=== PATIENT | female | born 1940 | race Caucasian/White ===

== ENCOUNTER → 2016-10-11 | Outpatient (CLI) | payer MEDICARE ==
[2016-10-11 14:31] LABS: Non-African American GFR(MDRD) >60 (>60 ml/min/1.73 sqM)
== END | disposition home or self-care (01) ==
LOC: LABWHC1 13:43
PROVIDERS: ATTEND Family Medicine
DX: R59.0 Localized enlarged lymph nodes (principal)
CPT/HCPCS: 36415; 82565

== ENCOUNTER → 2016-11-14 | Outpatient (CLI) | payer MEDICARE ==
--- NOTE | 2016-11-15 09:06 | MM ---
Reason for exam: screening (asymptomatic). Last mammogram was performed 1 year ago. History: Patient is postmenopausal. Excisional biopsy of the right breast. Took hormonal contraceptives for 8 years beginning at age 24. Took estrogen for 10 years. Physical Findings: A clinical breast exam by your physician is recommended on an annual basis and results should be correlated with mammographic findings. MG 3D Screening Mammo W/Cad Bilateral CC and MLO view(s) were taken. Prior study comparison: November 14, 2015, bilateral MG screening mammo w CAD. October 21, 2014, bilateral MG screening mammo w CAD. The breast tissue is heterogeneously dense. This may lower the sensitivity of mammography. There is no discrete abnormality. No significant changes when compared with prior studies. ASSESSMENT: Negative, BI-RAD 1 RECOMMENDATION: Routine screening mammogram of both breasts in 1 year.
== END | disposition home or self-care (01) ==
LOC: RADMAMWWP 09:03
PROVIDERS: ATTEND Obstetrics & Gynecology
DX: Z12.31 Encounter for screening mammogram for malignant neoplasm of breast (principal)
CPT/HCPCS: 77063; G0202

== ENCOUNTER → 2017-01-24 | Outpatient (CLI) | payer MEDICARE ==
--- NOTE | 2017-01-24 16:34 | BD ---
EXAMINATION TYPE: MG DEXA axial skeleton. DATE OF EXAM: 01/24/2017 COMPARISON: NONE CLINICAL HISTORY: 76 year-old female known osteopenia Height: 5 FT 7 1/2 IN Weight: 194 FRAX RISK QUESTIONS: Alcohol (3 or more units per day): NO Family History (Parent hip fracture): NO Glucocorticoids (More than 3mos): NO (Ex: prednisone, prednisolone, methylprednisolone, dexamethasone, and hydrocortisone). History of Fracture in Adulthood: YES Secondary Osteoporosis: 1. Type 1 Diabetes: NO 2. Hyperthyroidism: NO 3. Menopause before 45: YES 4. Malnutrition: NO 5. Chronic liver disease: NO Rheumatoid Arthritis: NO Current Tobacco Use: NO RISK FACTORS HISTORY OF: History of Wrist Fracture: YES When: AGE 74 Surgery to Spine/Hip(right/left)/Wrist (right/left): LT WRIST When: 2 YRS AGO Active: YES Postmenopausal woman: AGE 47 MEDICATIONS: Additional Medications: PROPRANOLOL, PRADAXA, MIRTAZAPINE, CLONAZAPAM, D3, DICYCLOMINE,FLECINIDE Additional History: EXAM MEASUREMENTS: Bone mineral densitometry was performed using the DragonRAD System. Bone mineral density as measured about the Lumbar spine is: ----- L1-L4(G/cm2): 1.003 T Score Values are as follows: ----- L2: -2.5 ----- L3: -1.1 ----- L4: -0.5 ----- L1-L4: -1.5 Bone mineral density has: Increased 1.9% since study of: 2013 Bone mineral density about the R hip (g/cm2): 0.777 Bone mineral density about the L hip (g/cm2): 0.815 T Score values are as follows: -----R Neck: -1.9 -----L Neck: -1.6 -----R Total: -2.0 -----L Total: -1.8 Bone mineral density has: Decreased -3.4% since study of: 2013 IMPRESSION: Osteopenia (T Score between -2.5 and -1 as noted by T score values There is slightly increased risk of fracture and the patient may be considered for treatment. Re-Scre en 2-5 years. NOTE: T-SCORE=SD OF THE YOUNG ADULT MEAN.
== END | disposition home or self-care (01) ==
LOC: RADBDWWP 14:00
PROVIDERS: ATTEND Obstetrics & Gynecology
DX: M85.88 Other specified disorders of bone density and structure, other site (principal)
CPT/HCPCS: 77080

== ENCOUNTER 2017-09-07 07:38 | Emergency (ER) | payer MEDICARE ==
[2017-09-07 07:50] VITALS: BP 138/74; PULSE 69; RESP 16; TEMP 97.8
--- NOTE | 2017-09-07 08:11 | XR ---
EXAMINATION TYPE: XR foot complete LT , 3 VIEWS DATE OF EXAM ORDERED: 09/07/2017 HISTORY: Pain. COMPARISON: None. FINDINGS: No fracture, dislocation or other acute osseous lesion is seen. There is a plantar calcane al spur present. IMPRESSION: 1. NO ACUTE OSSEOUS LESION. 2. PLANTAR CALCANEAL SPUR.
[2017-09-07] MEDS ORDERED: traMADol 50 MG STARTER PACK 3 TAB BTL PO STA (08:18)
--- NOTE | 2017-09-07 08:19 | ED ---
Fall HPI - General Source: patient, RN notes reviewed Mode of arrival: wheelchair Limitations: no limitations <Balaji Cespedes - Last Filed: 09/07/17 08:20> <Jeffrey Golden - Last Filed: 09/07/17 08:28> - General Chief Complaint: Fall Stated Complaint: Fall, toe injury Time Seen by Provider: 09/07/17 08:04 - History of Present Illness Initial Comments: This is a 77-year-old female presents emergency Department chief complaint of left foot injury. Patient states she slid off first up last night states her foot bent backwards and injuring her foot in first toe. Patient states that she had no prior fractures. Denies any head injury no loss conscious. Patient states that she did not fall down steps. She states only injury she has is her left foot. She denies any left ankle pain. (Balaji Cespedes) - Related Data Home Medications Medication Instructions Recorded Confirmed Dabigatran [Pradaxa] 150 mg PO BID 01/06/14 09/07/17 Flecainide Acetate [Tambocor] 50 mg PO BID 01/06/14 09/07/17 Mirtazapine [Remeron] 15 mg PO HS 01/06/14 09/07/17 clonazePAM [KlonoPIN] 1 mg PO BID 01/06/14 09/07/17 Dicyclomine [Bentyl] 10 mg PO TID PRN 01/13/15 09/07/17 [place]-3 Fatty Acids/Fish Oil [Fish 1 cap PO BID 01/13/15 09/07/17 Oil 1,000 mg Softgel] Propranolol HCl 60 mg PO BID 01/13/15 09/07/17 Cholecalciferol [Vitamin D3] 2,000 unit PO DAILY 09/09/15 09/07/17 Acetaminophen [Tylenol] 500 mg PO Q4-6H PRN 09/13/15 09/07/17 Cranberry 4200mg 4,200 mg PO DAILY 09/15/15 09/07/17 Previous Rx's Medication Instructions Recorded traMADol HCl [Ultram] 50 mg PO Q6H PRN #12 tab 09/07/17 Allergies Allergy/AdvReac Type Severity Reaction Status Date / Time aspartame Allergy Rash/Hives Verified 09/07/17 07:50 Sulfa (Sulfonamide Allergy Anaphylaxis Verified 09/07/17 07:50 Antibiotics) Review of Systems ROS Other: All systems not noted in ROS Statement are negative. <Balaji Cespedes - Last Filed: 09/07/17 08:20> ROS Other: All systems not noted in ROS Statement are negative. <Jeffrey Golden - Last Filed: 09/07/17 08:28> ROS Statement: Those systems with pertinent positive or pertinent negative responses have been documented in the HPI. Past Medical History Past Medical History: Osteoarthritis (OA) Additional Past Medical History / Comment(s): SEE DR URBINA H&P, IBS, RECENTLY ON ABX FOR TOE INFECTION. HAD A PNE VACCINE NOT SURE OF THE DATE, APPROX 3 YEARS AGO. History of Any Multi-Drug Resistant Organisms: None Reported Past Surgical History: Cardiac Ablation Additional Past Surgical History / Comment(s): lumpectomy right breast -benign, bilat carpal tunnel, blepharoplasty, KAR CATARACTS, 5-17-16 CARDIAC ABLATION. Past Anesthesia/Blood Transfusion Reactions: No Reported Reaction Past Psychological History: Depression Smoking Status: Never smoker - Past Family History Mother Family Medical History: Cancer Brother(s) Family Medical History: Cancer Additional Family Medical History / Comment(s): X2 <Balaji Cespedes - Last Filed: 09/07/17 08:20> General Exam Limitations: no limitations General appearance: alert, in no apparent distress Neck exam: Present: normal inspection, full ROM. Absent: tenderness, meningismus, lymphadenopathy Respiratory exam: Present: normal lung sounds bilaterally. Absent: respiratory distress, wheezes, rales, rhonchi, stridor Cardiovascular Exam: Present: regular rate, normal rhythm, normal heart sounds. Absent: systolic murmur, diastolic murmur, rubs, gallop, clicks Extremities exam: Present: other (Left foot there is moderate swelling on the first MTP, abrasion noted, mild ecchymosis neurovascular intact there is tenderness of the first MTP and mid foot. Patient has no ankle tenderness ) Skin exam: Present: warm, dry, intact, normal color. Absent: rash <Balaji Cespedes - Last Filed: 09/07/17 08:20> Course <Balaji Cespedes - Last Filed: 09/07/17 08:20> <Jeffrey Golden - Last Filed: 09/07/17 08:28> Vital Signs 09/07/17 07:47 Temperature 97.8 F Pulse Rate 69 Respiratory 16 Rate Blood Pressure 138/74 O2 Sat by Pulse 95 Oximetry - Reevaluation(s) Reevaluation #1: 09/07/17 08:27 PA supervision: I did personally do a [id number] evaluation the patient and did discuss the findings with her . X-rays negative for acute findings or is tenderness over the first metatarsal phalangeal joint exam is consistent with a strain/sprain. We did discuss elevation and ice as initial treatment. Weight-bear as tolerated. I do agree with the assessment and plan. (Jeffrey Golden) Medical Decision Making <Balaji Cespedes - Last Filed: 09/07/17 08:20> <Jeffrey Golden - Last Filed: 09/07/17 08:28> - Medical Decision Making 77-year-old female presented emergency department for left foot injury. Patient 's x-rays reviewed by me and radiologist there is no acute fracture. Patient has a sprain of her left foot. She is advised to rest, ice and elevate. She' ll follow-up with orthopedics if no improvement. Should be given a short prescription of tramadol for pain control and she'll continue Tylenol. Patient cannot take anti-inflammatories as she is on productive. (Balaji Cespedes) Disposition Is patient prescribed a controlled substance at d/c from ED?: Yes If prescribed controlled substance>3 days was MAPS reviewed?: No When asked, does pt state using other controlled substances?: No Time of Disposition: 08:19 <Balaji Cespedes - Last Filed: 09/07/17 08:20> <Jeffrey Golden - Last Filed: 09/07/17 08:28> Clinical Impression: Fall, Sprain of left foot Disposition: HOME SELF-CARE Condition: Stable Instructions: Foot Sprain (ED) Additional Instructions: Please return to the Emergency Department if symptoms worsen or any other concerns. Prescriptions: traMADol HCl [Ultram] 50 mg PO Q6H PRN #12 tab PRN Reason: Pain Referrals: Meliza Hart MD [Primary Care Provider] - 1-2 days Justice Galvin MD [Medical Doctor] - 1-2 days
== END 2017-09-07 08:31 | disposition home or self-care (01) ==
LOC: EC 07:38
DX: S93.602A Unspecified sprain of left foot, initial encounter (principal); F32.9 Major depressive disorder, single episode, unspecified; Z79.01 Long term (current) use of anticoagulants; Z79.899 Other long term (current) drug therapy; Z88.2 Allergy status to sulfonamides; Z91.018 Allergy to other foods; Z98.890 Other specified postprocedural states; W01.0XXA Fall on same level from slipping, tripping and stumbling without subsequent striking against object, initial encounter; Y92.009 Unspecified place in unspecified non-institutional (private) residence as the place of occurrence of the external cause
CPT/HCPCS: 99283

== ENCOUNTER → 2017-12-02 | Outpatient (CLI) | payer MEDICARE ==
--- NOTE | 2017-12-04 13:17 | MM ---
Reason for exam: screening (asymptomatic). Last mammogram was performed 1 year and 1 month ago. History: Patient is postmenopausal. Excisional biopsy of the right breast. Took hormonal contraceptives for 8 years beginning at age 24. Took estrogen for 10 years. Physical Findings: A clinical breast exam by your physician is recommended on an annual basis and results should be correlated with mammographic findings. MG 3D Screening Mammo W/Cad Bilateral CC and MLO view(s) were taken. Prior study comparison: November 14, 2016, bilateral MG 3d screening mammo w/cad. November 14, 2015, bilateral MG screening mammo w CAD. The breast tissue is heterogeneously dense. This may lower the sensitivity of mammography. Finding: There is an equal, spiculated mass located 7 cm from the nipple in the upper quadrant, posterior position, positive on CAD. Asymmetric breast tissue greater in the left breast. ASSESSMENT: Incomplete: need additional imaging evaluation, BI-RAD 0 RECOMMENDATION: Special view mammogram of the left breast. If lesion persists on supplemental views, image directed ultrasound is recommended. [facility] will attempt to contact patient to return for supplemental views and ultrasound if indicated.
== END | disposition home or self-care (01) ==
LOC: RADMAMWWP 08:43
PROVIDERS: ATTEND Obstetrics & Gynecology
DX: Z12.31 Encounter for screening mammogram for malignant neoplasm of breast (principal)
CPT/HCPCS: 77063; 77067

== ENCOUNTER → 2017-12-13 | Outpatient (CLI) | payer MEDICARE ==
--- NOTE | 2017-12-17 10:02 | MM ---
Reason for exam: additional evaluation requested from abnormal screening. Last mammogram was performed less than 1 month ago. History: Patient is postmenopausal. Excisional biopsy of the right breast. Took hormonal contraceptives for 8 years beginning at age 24. Took estrogen for 10 years. Physical Findings: Nurse did not find any significant physical abnormalities on exam. MG 3D Work Up W/Cad LT LM and spot compression MLO view(s) were taken of the left breast. Prior study comparison: December 02, 2017, bilateral MG 3d screening mammo w/cad. November 14, 2016, bilateral MG 3d screening mammo w/cad. November 14, 2015, bilateral MG screening mammo w CAD. The breast tissue is heterogeneously dense. This may lower the sensitivity of mammography. There is a persistent 5 mm asymmetry of the superior left breast at posterior depth approximately 7 cm from nipple. These results were verbally communicated with the patient and result sheet given to the patient on 12/13/17. ASSESSMENT: Incomplete: need additional imaging evaluation, BI-RAD 0 RECOMMENDATION: Ultrasound of the left breast.
--- NOTE | 2017-12-17 10:10 | USB ---
Reason for exam: additional evaluation requested from abnormal screening. History: Patient is postmenopausal. Excisional biopsy of the right breast. Took hormonal contraceptives for 8 years beginning at age 24. Took estrogen for 10 years. US Breast Workup Limited LT Left limited breast ultrasound including focal area of concern, retroareolar and axilla demonstrates a 0.7 x 0.5 x 0.3 cm oval cystic possible but hypoechoic lesion at 1 o'clock, and a 1.6 x 1.2 x 0.7 cm node in the axilla. Attempt aspiration if unsuccessful, convert to biopsy. These results were verbally communicated with the patient and result sheet given to the patient on 12/13/17. ASSESSMENT: Suspicious, BI-RAD 4 RECOMMENDATION: Ultrasound core biopsy of the left breast. Called Dr. Camarillo with mammographic findings and has scheduled an appointment for the patient for 01/16/18 at 10:[address] Short. PRELIMINARY REPORT CALLED AND FAXED TO DR. SHORT ON 12/13/17.
== END | disposition home or self-care (01) ==
LOC: RADMAMWWP 06:47
PROVIDERS: ATTEND Obstetrics & Gynecology
DX: R92.8 Other abnormal and inconclusive findings on diagnostic imaging of breast (principal)
CPT/HCPCS: 77065; 76642; G0279; 77061

== ENCOUNTER → 2017-12-19 | Day surgery (SDC) | payer MEDICARE ==
[2017-12-19 11:36] VITALS: BP 158/83; PULSE 62; RESP 16; TEMP 98; BMI 28.0
--- NOTE | 2017-12-19 15:42 | USB ---
EXAMINATION TYPE: US biopsy breast VAD LT DATE OF EXAM: 12/19/2017 CLINICAL HISTORY: Abnormal Mammo R92.8. TECHNIQUE: Real-time linear array sonography is performed over the left breast with attention to the 1:00 position. COMPARISON: Mammogram 12/13/2017, ultrasound 12/13/2017 FINDINGS: The hypoechoic lesion at the 1:00 position could not be re-identified at this time. 2 separate techno logists scanning in real-time observation by the radiologist or unable to reproduce this finding. Fin dings are likely benign, follow-up can be performed when the patient returns from [place] in 8 months . This was discussed with the patient. If anything should clinically change prior to that time, patie nt will follow-up with diagnostic workup earlier. IMPRESSION: 1. Negative ultrasound upper outer quadrant left breast. Recommendations: 1. Follow-up left breast mammogram, 2 views 8 months. 2. Follow-up left breast ultrasound upper outer quadrant 8 months. 3. Patient should continue monthly self breast exam. 4 negative ultrasound should not preclude biopsy of suspicious palpable abnormalities.
== END | disposition home or self-care (01) ==
LOC: RADUSWWP 10:56
PROVIDERS: ATTEND Surgery
DX: R92.8 Other abnormal and inconclusive findings on diagnostic imaging of breast (principal); Z53.8 Procedure and treatment not carried out for other reasons

== ENCOUNTER → 2018-09-15 | Outpatient (CLI) | payer MEDICARE ==
--- NOTE | 2018-09-16 12:06 | MM ---
Reason for exam: follow-up at short interval from prior study. Last mammogram was performed 9 months ago. History: Patient is postmenopausal. US discontinued breast bx LT of the left breast, December 19, 2017. Excisional biopsy of the right breast. Took hormonal contraceptives for 8 years beginning at age 24. Took estrogen for 10 years. Physical Findings: Nurse Summary: 1cm nodule in the left breast (nurse kp). MG 3D Diag Mammo W/Cad LT CC and MLO view(s) were taken of the left breast. Prior study comparison: December 13, 2017, left breast MG 3d work up w/cad LT. December 02, 2017, bilateral MG 3d screening mammo w/cad. The breast tissue is heterogeneously dense. This may lower the sensitivity of mammography. No significant new findings when compared with previous films. These results were verbally communicated with the patient and result sheet given to the patient on 09/15/18. ASSESSMENT: Benign, BI-RAD 2 RECOMMENDATION: Return to routine screening mammogram schedule for both breasts. Back on schedule for November 2018. Manage patient on a clinical basis.
--- NOTE | 2018-09-16 12:07 | USB ---
Reason for exam: follow-up at short interval from prior study. History: Patient is postmenopausal. US discontinued breast bx LT of the left breast, December 19, 2017. Excisional biopsy of the right breast. Took hormonal contraceptives for 8 years beginning at age 24. Took estrogen for 10 years. US Breast Limited LT Left limited breast ultrasound including focal area of concern, retroareolar and axilla demonstrates no cystic or solid lesion seen. These results were verbally communicated with the patient and result sheet given to the patient on 09/15/18. ASSESSMENT: Negative, BI-RAD 1 RECOMMENDATION: Return to routine screening mammogram schedule for both breasts. Back on schedule for November 2018.
== END | disposition home or self-care (01) ==
LOC: RADMAMWWP 07:43
PROVIDERS: ATTEND Surgery
DX: R92.8 Other abnormal and inconclusive findings on diagnostic imaging of breast (principal)
CPT/HCPCS: 77065; 76642; G0279; 77061

== ENCOUNTER → 2018-12-12 | Outpatient (CLI) | payer MEDICARE ==
--- NOTE | 2018-12-16 09:09 | MM ---
Reason for exam: screening (asymptomatic). Last mammogram was performed 3 months ago. History: Patient is postmenopausal. US discontinued breast bx LT of the left breast, December 19, 2017. Excisional biopsy of the right breast. Took hormonal contraceptives for 8 years beginning at age 24. Took estrogen for 10 years. Physical Findings: A clinical breast exam by your physician is recommended on an annual basis and results should be correlated with mammographic findings. MG 3D Screening Mammo W/Cad Bilateral CC and MLO view(s) were taken. Prior study comparison: September 15, 2018, left breast MG 3d diag mammo w/cad LT. December 13, 2017, left breast MG 3d work up w/cad LT. The breast tissue is heterogeneously dense. This may lower the sensitivity of mammography. Asymmetric breast tissue greaster in the left breast. No significant changes when compared with prior studies. ASSESSMENT: Benign, BI-RAD 2 RECOMMENDATION: Routine screening mammogram of both breasts in 1 year.
== END ==
LOC: RADMAMWWP 07:59
PROVIDERS: ATTEND Obstetrics & Gynecology
DX: Z12.31 Encounter for screening mammogram for malignant neoplasm of breast (principal)
CPT/HCPCS: 77063; 77067

== ENCOUNTER 2019-10-31 18:47 | Emergency (ER) | payer MEDICARE ==
[2019-10-31 18:54] VITALS: RESP 18
--- NOTE | 2019-10-31 19:49 | ED ---
Lower Extremity Injury HPI - General Chief Complaint: Extremity Injury, Lower Stated Complaint: Ankle injury Time Seen by Provider: 10/31/19 19:01 Source: patient Mode of arrival: wheelchair Limitations: no limitations - History of Present Illness Initial Comments: Patient is 79-year-old female presenting to the emergency department with a chief complaint of flank pain and swelling. Patient reports she's noticed the symptoms over the past 2 days. Denies any direct trauma to the region. States the pain is exacerbated with dorsiflexion and ambulation. Reports the pain is mostly located to the medial malleolus and radiates proximally to the calf region. She does have history of COPD so shortness of breath at baseline. Patient does take Pradexa. Denies and chest pain. Denies history of DVT or PE. Denies recent hospitalizations or treatment for chemotherapy. Denies any erythema or swelling to the ankle. - Related Data Home Medications Medication Instructions Recorded Confirmed Dabigatran [Pradaxa] 150 mg PO BID 01/06/14 10/31/19 Flecainide Acetate [Tambocor] 50 mg PO BID 01/06/14 10/31/19 Mirtazapine [Remeron] 15 mg PO HS 01/06/14 10/31/19 clonazePAM [KlonoPIN] 1 mg PO BID 01/06/14 10/31/19 Propranolol HCl 60 mg PO DAILY 01/13/15 10/31/19 Albuterol Sulfate [Ventolin HFA] 2 puff INHALATION RT-Q4H PRN 10/31/19 10/31/19 Cholecalciferol (Vitamin D3) 50 mcg PO DAILY 10/31/19 10/31/19 [Vitamin D3] Vortioxetine Hydrobromide 10 mg PO DAILY 10/31/19 10/31/19 [Trintellix] Allergies Allergy/AdvReac Type Severity Reaction Status Date / Time aspartame Allergy Rash/Hives Verified 10/31/19 19:58 Sulfa (Sulfonamide Allergy Anaphylaxis Verified 10/31/19 19:58 Antibiotics) Review of Systems ROS Statement: Those systems with pertinent positive or pertinent negative responses have been documented in the HPI. ROS Other: All systems not noted in ROS Statement are negative. Past Medical History Past Medical History: COPD, Osteoarthritis (OA) Additional Past Medical History / Comment(s): SEE DR URBINA H&P, IBS, RECENTLY ON ABX FOR TOE INFECTION. HAD A PNE VACCINE NOT SURE OF THE DATE, APPROX 3 YEARS AGO. AFIB History of Any Multi-Drug Resistant Organisms: None Reported Past Surgical History: Cardiac Ablation Additional Past Surgical History / Comment(s): lumpectomy right breast -benign, bilat carpal tunnel, blepharoplasty, KAR CATARACTS, 5-17-16 CARDIAC ABLATION. Past Anesthesia/Blood Transfusion Reactions: No Reported Reaction Past Psychological History: Anxiety, Depression Smoking Status: Never smoker Past Alcohol Use History: None Reported Past Drug Use History: None Reported - Past Family History Mother Family Medical History: Cancer Brother(s) Family Medical History: Cancer Additional Family Medical History / Comment(s): X2 General Exam Limitations: no limitations General appearance: alert, in no apparent distress Head exam: Present: atraumatic, normocephalic, normal inspection Eye exam: Present: normal appearance, PERRL, EOMI Pupils: Present: normal accommodation ENT exam: Present: normal exam, normal oropharynx, mucous membranes moist, TM's normal bilaterally, normal external ear exam Neck exam: Present: normal inspection, full ROM. Absent: tenderness Respiratory exam: Present: normal lung sounds bilaterally. Absent: respiratory distress, wheezes Cardiovascular Exam: Present: regular rate, normal rhythm, normal heart sounds Extremities exam: Present: full ROM, tenderness (Medial malleolus and Tenderness of the left lower extremity), normal capillary refill, pedal edema (+1 pitting), joint swelling (Left ankle), calf tenderness (Positive Homans left lower extremity), other (+2 dorsalis pedis and posterior tibialis bilaterally.). Absent: normal inspection (Small amount swelling noted on the left ankle region.) Back exam: Present: normal inspection, full ROM. Absent: tenderness Neurological exam: Present: alert, oriented X3 Psychiatric exam: Present: normal affect, normal mood Skin exam: Present: warm, dry, intact, normal color Course Vital Signs 10/31/19 10/31/19 18:52 20:50 Temperature 97.9 F 98.3 F Pulse Rate 66 57 L Respiratory 18 18 Rate Blood Pressure 146/73 138/81 O2 Sat by Pulse 96 98 Oximetry Procedures - Orthopedic Splinting/Casting Injury #1 Side: left Lower Extremity Injury Location: ankle Lower Extremity Immobilizer: Aba wrap Medical Decision Making - Medical Decision Making Patient is 79-year-old female presenting to the emergency department with a chief complaint of left ankle pain. Nutritional reveals the patient twisted her left ankle 2 days ago, however when I obtained the history of present illness. Patient denies any trauma or injury to the ankle. Physical examination reveals +1 pitting edema and a positive Homans sign. Ultrasound obtained shows no signs of DVT. Aba wrap was applied. No signs of infection. There was no direct trauma to the leg. Patient advised to rest, ice, compress and elevate the leg. Patient advised to follow-up with the primary care. Return parameters were thoroughly discussed with patient was understanding and agreeable. Case discussed with physician. Disposition Clinical Impression: Pain in left lower leg, Pain and swelling of left ankle Disposition: HOME SELF-CARE Condition: Stable Instructions (If sedation given, give patient instructions): Ankle Sprain (ED) Additional Instructions: Rest, apply ice every 3 hours for 15 minutes, apply Aba bandage and keep the foot elevated. Follow with the primary care. Return to emergency department if symptoms worsen. Is patient prescribed a controlled substance at d/c from ED?: No Referrals: Meliza Hart MD [Primary Care Provider] - 1-2 days Time of Disposition: 20:38
--- NOTE | 2019-10-31 20:15 | US ---
EXAMINATION TYPE: US venous doppler duplex LE LT DATE OF EXAM: 10/31/2019 8:08 PM COMPARISON: NONE CLINICAL HISTORY: Unilateral leg swelling, positive Homans. Left leg swelling per patient. No rednes s. No hx DVT. SIDE PERFORMED: Left TECHNIQUE: The lower extremity deep venous system is examined utilizing real time linear array sonog uli with graded compression, doppler sonography and color-flow sonography. VESSELS IMAGED: External Iliac Vein (EIV) Common Femoral Vein Deep Femoral Vein Greater Saphenous Vein * Femoral Vein Popliteal Vein Small Saphenous Vein * Proximal Calf Veins (* superficial vessels) Left Leg: Negative for DVT IMPRESSION: No evidence of deep vein thrombosis in the left leg.
[2019-10-31 21:18] VITALS: BP 138/81; PULSE 57; TEMP 98.3
== END 2019-10-31 20:50 | disposition home or self-care (01) ==
LOC: EC 18:47
DX: S99.912A Unspecified injury of left ankle, initial encounter (principal); I48.91 Unspecified atrial fibrillation; F41.9 Anxiety disorder, unspecified; F32.9 Major depressive disorder, single episode, unspecified; J44.9 Chronic obstructive pulmonary disease, unspecified; Z79.01 Long term (current) use of anticoagulants; Z79.899 Other long term (current) drug therapy; Z91.048 Other nonmedicinal substance allergy status; Z91.018 Allergy to other foods; Z88.2 Allergy status to sulfonamides; X58.XXXA Exposure to other specified factors, initial encounter
CPT/HCPCS: 99283

== ENCOUNTER → 2019-11-05 | Outpatient (CLI) | payer MEDICARE ==
--- NOTE | 2019-11-05 12:57 | XR ---
Left foot, ankle, leg HISTORY: Foot and leg pain 3 views of the left foot, 3 views of the left ankle, frontal and lateral views of the left leg on 4 i mages submitted. Degenerative changes present at the metatarsophalangeal joint of the first digit. Bone mineralization is reduced. There is no fracture or dislocation. Alignment is maintained. Small ossific density dist al to the medial malleolus is well-corticated and felt likely to be chronic. There is a plantar calca kathrin spur present. IMPRESSION: Degenerative changes first digit, plantar calcaneal spur.
== END | disposition home or self-care (01) ==
LOC: RADXRMAIN 12:01
PROVIDERS: ATTEND Family Medicine
DX: M19.072 Primary osteoarthritis, left ankle and foot (principal)

== ENCOUNTER 2019-11-11 07:42 | Day surgery (SDC) | payer MEDICARE ==
[2019-11-09 13:12] VITALS: BMI 28.8
[~2019-11-11 07:42] MED LIST: LACTATED RINGERS 1,000 ML IV SCH; LIDOCAINE 1% (10MG/ML) FOR IV START INTRADERMA PRN
[2019-11-11 08:29] VITALS: RESP 16; TEMP 96.7
[2019-11-11] MEDS ORDERED: PROPOFOL 10 MG/ML 20 ML VIAL IV ONE (08:46)
--- NOTE | 2019-11-11 09:04 | P.PCN ---
Date of Procedure: 11/11/19 Procedure(s) Performed: BRIEF HISTORY: Patient is a 79-year-old pleasant white female scheduled for an elective colonoscopy as a part of evaluation of chronic diarrhea for the last few months duration. She has bowel movements anywhere from 5-6 a day which are loose to watery in consistency. No blood or mucus in the stool. PROCEDURE PERFORMED: Colonoscopy with random biopsies. PREOPERATIVE DIAGNOSIS: Chronic diarrhea. IV sedation per Anesthesia. PROCEDURE: After informed consent was obtained, the patient, was brought into the endoscopy unit. IV sedation was administered by Anesthesia under continuous monitoring. Digital rectal examination was normal. Initially the Olympus CF-160 flexible video colonoscope was then inserted in the rectum, gradually advanced into the cecum without any difficulty. Careful examination was performed as the scope was gradually being withdrawn. Ileocecal valve and the appendiceal orifice were visualized and appeared normal. Prep was excellent. Mucosa of the cecum, ascending colon, transverse colon, appeared normal. There was a 2 mm polyp in the descending colon that was removed by cold biopsy. Rest of the descending colon, sigmoid colon, and rectum appeared normal. Biopsies were done from ascending and descending colon to rule out microscopic/collagenous colitis Retroflexion was performed in the rectum and no lesions were seen. The patient tolerated the procedure well. IMPRESSION: 2 mm descending colon polyp status post removal by cold biopsy Rest of the colon appeared normal RECOMMENDATIONS: Findings of this examination were discussed with the patient as well as a family. She was advised to follow with the biopsy results and she'll be seen in office in 2 weeks..
[2019-11-11 09:24] VITALS: BP 133/69; PULSE 59
== END 2019-11-11 09:47 | disposition home or self-care (01) ==
LOC: ORWHC2ENDO 07:42
PROVIDERS: ATTEND Internal Medicine Gastroenterology
DX: K52.9 Noninfective gastroenteritis and colitis, unspecified (principal); K63.5 Polyp of colon; I48.91 Unspecified atrial fibrillation; J44.9 Chronic obstructive pulmonary disease, unspecified; F32.9 Major depressive disorder, single episode, unspecified; Z79.899 Other long term (current) drug therapy; Z79.02 Long term (current) use of antithrombotics/antiplatelets; Z88.2 Allergy status to sulfonamides; Z98.890 Other specified postprocedural states
CPT/HCPCS: 88305; 45380; J2704

== ENCOUNTER 2019-11-11 18:37 | Emergency (ER) | payer MEDICARE ==
[2019-11-11 18:41] VITALS: RESP 18; TEMP 98.3
[2019-11-11] MEDS ORDERED: SODIUM CHLORIDE 0.9% 1,000 ML IV STA (18:45)
--- NOTE | 2019-11-11 18:51 | ED ---
Abdominal Pain HPI - General Chief Complaint: Abdominal Pain Stated Complaint: Abd pain Time Seen by Provider: 11/11/19 18:44 Source: patient, RN notes reviewed, old records reviewed Mode of arrival: ambulatory Limitations: no limitations - History of Present Illness Initial Comments: This is a 79-year-old female David today. She presents today for evaluation regards to severe abdominal pain with nausea and vomiting. Patient colonoscopy earlier today by Dr. Sidhu here at the hospital went well with a few biopsies a polyp but no other issues. Patient has no blood in the diarrhea but is having persistent diarrhea is very nauseous unable to keep anything down. Abdominal pain is severe and diffuse MD Complaint: abdominal pain -: hour(s) Location: diffuse Radiation: none Migration to: no migration Severity: severe Severity scale (1-10): 9 Quality: stabbing, aching Consistency: constant Improves With: nothing Worsens With: nothing Context: recent surgery/procedure Associated Symptoms: nausea, vomiting, diarrhea - Related Data Home Medications Medication Instructions Recorded Confirmed Dabigatran [Pradaxa] 150 mg PO BID 01/06/14 11/09/19 Flecainide Acetate [Tambocor] 50 mg PO BID 01/06/14 11/09/19 Mirtazapine [Remeron] 15 mg PO HS 01/06/14 11/09/19 clonazePAM [KlonoPIN] 1 mg PO BID 01/06/14 11/09/19 Propranolol HCl 60 mg PO DAILY 01/13/15 11/09/19 Albuterol Sulfate [Ventolin HFA] 2 puff INHALATION RT-Q4H PRN 10/31/19 11/09/19 Cholecalciferol (Vitamin D3) 50 mcg PO DAILY 10/31/19 11/09/19 [Vitamin D3] Vortioxetine Hydrobromide 10 mg PO DAILY 10/31/19 11/09/19 [Trintellix] Allergies Allergy/AdvReac Type Severity Reaction Status Date / Time aspartame Allergy Rash/Hives Verified 11/11/19 18:41 Sulfa (Sulfonamide Allergy Anaphylaxis Verified 11/11/19 18:41 Antibiotics) Review of Systems ROS Statement: Those systems with pertinent positive or pertinent negative responses have been documented in the HPI. ROS Other: All systems not noted in ROS Statement are negative. Past Medical History Past Medical History: COPD, Osteoarthritis (OA) Additional Past Medical History / Comment(s): SEE DR CARLITOS Bailey&Joseph, IBS, RECENTLY ON ABX FOR TOE INFECTION. HAD A PNE VACCINE NOT SURE OF THE DATE, APPROX 3 YEARS AGO. AFIB History of Any Multi-Drug Resistant Organisms: None Reported Past Surgical History: Cardiac Ablation Additional Past Surgical History / Comment(s): lumpectomy right breast -benign, bilat carpal tunnel, blepharoplasty, KAR CATARACTS, 5-17-16 CARDIAC ABLATION. Past Anesthesia/Blood Transfusion Reactions: No Reported Reaction Past Psychological History: Anxiety, Depression Smoking Status: Never smoker Past Alcohol Use History: None Reported Past Drug Use History: None Reported - Past Family History Mother Family Medical History: Cancer Brother(s) Family Medical History: Cancer Additional Family Medical History / Comment(s): X2 General Exam Limitations: no limitations General appearance: alert, in no apparent distress, anxious Head exam: Present: atraumatic, normocephalic, normal inspection Eye exam: Present: normal appearance, PERRL, EOMI. Absent: scleral icterus, conjunctival injection, periorbital swelling ENT exam: Present: normal exam, mucous membranes moist Neck exam: Present: normal inspection. Absent: tenderness, meningismus, lymphadenopathy Respiratory exam: Present: normal lung sounds bilaterally. Absent: respiratory distress, wheezes, rales, rhonchi, stridor Cardiovascular Exam: Present: regular rate, normal rhythm, normal heart sounds. Absent: systolic murmur, diastolic murmur, rubs, gallop, clicks GI/Abdominal exam: Present: soft, normal bowel sounds. Absent: distended, te nderness, guarding, rebound, rigid Extremities exam: Present: normal inspection, full ROM, normal capillary refill. Absent: tenderness, pedal edema, joint swelling, calf tenderness Back exam: Present: normal inspection Neurological exam: Present: alert, oriented X3, CN II-XII intact Psychiatric exam: Present: normal affect, normal mood Skin exam: Present: warm, dry, intact, normal color. Absent: rash Course Vital Signs 11/11/19 18:38 Temperature 98.3 F Pulse Rate 88 Respiratory 18 Rate Blood Pressure 195/113 O2 Sat by Pulse 97 Oximetry - Reevaluation(s) Reevaluation #1: 11/11/19 20:02 Medical record is reviewed Reevaluation #2: 11/11/19 20:02 Symptoms improved Reevaluation #3: 11/11/19 20:31 Patient has again adequate pain control resting comfortably encouraged liquid diet Medical Decision Making - Medical Decision Making 79 female DF. Pain post colonoscopy abdominal pain cramping. No acute findings on computed tomography scan labwork or chest x-ray. Patient can be discharged home - Lab Data Result diagrams: 11/11/19 19:01 11/11/19 19:05 Lab Results 11/11/19 11/11/19 11/11/19 Range/Units 19:01 19:05 19:05 WBC 18.8 H (3.8-10.6) k/uL RBC 5.32 (3.80-5.40) m/uL Hgb 15.6 (11.4-16.0) gm/dL Hct 46.2 H (34.0-46.0) % MCV 86.8 (80.0-100.0) fL MCH 29.4 (25.0-35.0) pg MCHC 33.8 (31.0-37.0) g/dL RDW 13.0 (11.5-15.5) % Plt Count 275 (150-450) k/uL Neutrophils % 86 % Lymphocytes % 9 % Monocytes % 3 % Eosinophils % 2 % Basophils % 0 % Neutrophils # 16.1 H (1.3-7.7) k/uL Lymphocytes # 1.7 (1.0-4.8) k/uL Monocytes # 0.6 (0-1.0) k/uL Eosinophils # 0.3 (0-0.7) k/uL Basophils # 0.1 (0-0.2) k/uL Sodium 137 (137-145) mmol/L Potassium 4.3 (3.5-5.1) mmol/L Chloride 107 (98-107) mmol/L Carbon Dioxide 19 L (22-30) mmol/L Anion Gap 11 mmol/L BUN 15 (7-17) mg/dL Creatinine 0.87 (0.52-1.04) mg/dL Est GFR (CKD-EPI)AfAm 75 (>60 ml/min/1.73 sqM) Est GFR (CKD-EPI)NonAf 65 (>60 ml/min/1.73 sqM) Glucose 132 H (74-99) mg/dL Plasma Lactic Acid Aubrey 1.6 (0.7-2.0) mmol/L Calcium 9.7 (8.4-10.2) mg/dL Total Bilirubin 0.5 (0.2-1.3) mg/dL AST 30 (14-36) U/L ALT 22 (4-34) U/L Alkaline Phosphatase 53 (38-126) U/L Troponin I (0.000-0.034) ng/mL Total Protein 7.4 (6.3-8.2) g/dL Albumin 4.5 (3.5-5.0) g/dL Amylase 95 (30-110) U/L Lipase 536 H (23-300) U/L Urine Color Urine Appearance (Clear) Urine pH (5.0-8.0) Ur Specific [place] (1.001-1.035) Urine Protein (Negative) Urine Glucose (UA) (Negative) Urine Ketones (Negative) Urine Blood (Negative) Urine Nitrite (Negative) Urine Bilirubin (Negative) Urine Urobilinogen (<2.0) mg/dL Ur Leukocyte Esterase (Negative) Urine WBC (0-5) /hpf Ur Squamous Epith Cells (0-4) /hpf Calcium Oxalate Crystal (None) /hpf Hyaline Casts (0-2) /lpf Urine Mucus (None) /hpf 11/11/19 11/11/19 Range/Units 19:05 19:37 WBC (3.8-10.6) k/uL RBC (3.80-5.40) m/uL Hgb (11.4-16.0) gm/dL Hct (34.0-46.0) % MCV (80.0-100.0) fL MCH (25.0-35.0) pg MCHC (31.0-37.0) g/dL RDW (11.5-15.5) % Plt Count (150-450) k/uL Neutrophils % % Lymphocytes % % Monocytes % % Eosinophils % % Basophils % % Neutrophils # (1.3-7.7) k/uL Lymphocytes # (1.0-4.8) k/uL Monocytes # (0-1.0) k/uL Eosinophils # (0-0.7) k/uL Basophils # (0-0.2) k/uL Sodium (137-145) mmol/L Potassium (3.5-5.1) mmol/L Chloride (98-107) mmol/L Carbon Dioxide (22-30) mmol/L Anion Gap mmol/L BUN (7-17) mg/dL Creatinine (0.52-1.04) mg/dL Est GFR (CKD-EPI)AfAm (>60 ml/min/1.73 sqM) Est GFR (CKD-EPI)NonAf (>60 ml/min/1.73 sqM) Glucose (74-99) mg/dL Plasma Lactic Acid Aubrey (0.7-2.0) mmol/L Calcium (8.4-10.2) mg/dL Total Bilirubin (0.2-1.3) mg/dL AST (14-36) U/L ALT (4-34) U/L Alkaline Phosphatase (38-126) U/L Troponin I <0.012 (0.000-0.034) ng/mL Total Protein (6.3-8.2) g/dL Albumin (3.5-5.0) g/dL Amylase (30-110) U/L Lipase (23-300) U/L Urine Color Yellow Urine Appearance Clear (Clear) Urine pH 5.0 (5.0-8.0) Ur Specific [place] 1.026 (1.001-1.035) Urine Protein Trace H (Negative) Urine Glucose (UA) Negative (Negative) Urine Ketones Trace H (Negative) Urine Blood Trace H (Negative) Urine Nitrite Negative (Negative) Urine Bilirubin Negative (Negative) Urine Urobilinogen <2.0 (<2.0) mg/dL Ur Leukocyte Esterase Negative (Negative) Urine WBC 2 (0-5) /hpf Ur Squamous Epith Cells <1 (0-4) /hpf Calcium Oxalate Crystal Few H (None) /hpf Hyaline Casts 12 H (0-2) /lpf Urine Mucus Few H (None) /hpf - Radiology Data Radiology results: report reviewed (Chest x-ray and CT head and pelvis negative for acute disease), image reviewed Disposition Clinical Impression: Postoperative pain, Abdominal pain Disposition: HOME SELF-CARE Condition: Good Instructions (If sedation given, give patient instructions): Abdominal Pain (ED) Is patient prescribed a controlled substance at d/c from ED?: No Referrals: Meliza Hart MD [Primary Care Provider] - 1-2 days
[2019-11-11 19:21] LABS: Basophils # (A) 0.1 k/uL (0-0.2); Basophils % (A) 0 %; Eosinophils # (A) 0.3 k/uL (0-0.7); Eosinophils % (A) 2 %; HCT 46.2 % (34.0-46.0); HGB 15.6 gm/dL (11.4-16.0); Lymphocytes # (A) 1.7 k/uL (1.0-4.8); Lymphocytes % (A) 9 %; MCH 29.4 pg (25.0-35.0); MCHC 33.8 g/dL (31.0-37.0); MCV 86.8 fL (80.0-100.0); Mean Platelet Volume 8.9; Monocytes # (A) 0.6 k/uL (0-1.0); Monocytes % (A) 3 %; Neutrophils # (A) 16.1 k/uL (1.3-7.7); Neutrophils % (A) 86 %; Platelet Count 275 k/uL (150-450); RBC 5.32 m/uL (3.80-5.40); WBC 18.8 k/uL (3.8-10.6)
[2019-11-11 19:24] LABS: Albumin 4.5 g/dL (3.5-5.0); Calcium 9.7 mg/dL (8.4-10.2); Potassium 4.3 mmol/L (3.5-5.1); Total Bilirubin 0.5 mg/dL (0.2-1.3); Total Protein 7.4 g/dL (6.3-8.2)
[2019-11-11] MEDS ORDERED: MORPHINE SULFATE 4 MG/ML SYRINGE IVP STA (19:49)
[2019-11-11] MEDS ORDERED: ONDANSETRON 4 MG/2 ML VIAL IVP STA (19:49)
[2019-11-11 20:05] LABS: Appearance,Urine Clear (Clear); Bilirubin,Urine Negative (Negative); Blood,Urine Trace (Negative); Calcium Oxalate Crystals,Urine Few /hpf; Color,Urine Yellow; Glucose,Urine (UA) Negative (Negative); Hyaline Casts,Urine 12 /lpf (0-2); Ketones,Urine Trace (Negative); Leukocyte Esterase,Urine Negative (Negative); Mucus,Urine Few /hpf; Nitrite,Urine Negative (Negative); Protein,Urine Trace (Negative); Specific Gravity,Urine 1.026 (1.001-1.035); Squamous Epithelial Cell,Urine <1 /hpf (0-4); Urobilinogen,Urine <2.0 mg/dL (<2.0); WBC,Urine 2 /hpf (0-5)
--- NOTE | 2019-11-11 20:05 | XR ---
EXAMINATION TYPE: XR chest 1V portable DATE OF EXAM: 11/11/2019 HISTORY: Shortness of breath. COMPARISON: 12/25/2012 TECHNIQUE: Single view of the chest is submitted. FINDINGS: Demonstrated are scattered senescent parenchymal change. There is no evidence for focal infiltrate. The heart is stable. Hilar and mediastinal structures are within normal limits. Degenerative changes are seen of the dorsal spine. IMPRESSION: 1. Chronic changes without evidence for acute pulmonary disease.
--- NOTE | 2019-11-11 20:10 | CT ---
EXAMINATION TYPE: CT abdomen pelvis w con DATE OF EXAM: 11/11/2019 COMPARISON: 01/13/2015 HISTORY: Abdominal pain and vomiting post colonoscopy CT DLP: 1372.3 mGycm CONTRAST: CT scan of the abdomen and pelvis is performed without Oral Contrast and with IV Contrast, patient in jected with 100 mL of Isovue 300. FINDINGS: LUNG BASES-: No visible nodule. No infiltrate. LIVER/GB: No calcified gallstones. No space occupying hepatic lesion. Biliary tree is of normal ca liber. PANCREAS: No inflammation. No distinct mass. SPLEEN: No splenic enlargement. No lesion seen. ADRENALS: No nodule. No thickening. KIDNEYS/BLADDER: No hydronephrosis. No nephrolithiasis. No solid distinct renal mass. Renal cyst midpole left kidney. Urinary bladder grossly unremarkable. BOWEL: Normal appendix. Moderate wall thickening involving the mid and distal portions of the transve rse colon compatible with nonspecific colitis. The remainder of the colon and small bowel are of norm al caliber. GENITAL ORGANS: No gross abnormality. LYMPH NODES: No greater than 1cm abdominal or pelvic lymph nodes are appreciated. AORTA: No significant abnormality. OSSEOUS STRUCTURES: No significant abnormality is seen. OTHER: No significant additional abnormality is seen. IMPRESSION: 1. Nonspecific colitis transverse colon.
[2019-11-11] MEDS ORDERED: ONDANSETRON 4 MG ODT STARTER PACK 2 TAB BTL PO STA (20:30)
[2019-11-11] MEDS ORDERED: traMADol 50 MG STARTER PACK 3 TAB BTL PO STA (20:30)
[2019-11-11 20:47] VITALS: BP 145/55; PULSE 79
== END 2019-11-11 20:50 | disposition home or self-care (01) ==
LOC: EC 18:37
DX: R10.9 Unspecified abdominal pain (principal); G89.18 Other acute postprocedural pain; R11.2 Nausea with vomiting, unspecified; I48.91 Unspecified atrial fibrillation; R19.7 Diarrhea, unspecified; J44.9 Chronic obstructive pulmonary disease, unspecified; F41.9 Anxiety disorder, unspecified; F32.9 Major depressive disorder, single episode, unspecified; Z79.899 Other long term (current) drug therapy; Z79.01 Long term (current) use of anticoagulants; Z88.2 Allergy status to sulfonamides; Z88.8 Allergy status to other drugs, medicaments and biological substances; Z98.42 Cataract extraction status, left eye; Z98.41 Cataract extraction status, right eye
CPT/HCPCS: 36415; 80053; 82150; 83605; 83690; 84484; 85025; 81001; 74177; 71045; 99285; 96374; 96375; 96361; J2270; J2405; S0119; Q9967

== ENCOUNTER → 2020-01-26 | Outpatient (CLI) | payer MEDICARE ==
--- NOTE | 2020-01-26 09:15 | BD ---
EXAMINATION TYPE: Axial Bone Density DATE OF EXAM: 01/26/2020 COMPARISON: 01/24/2017 CLINICAL HISTORY: Postmenopausal female Nuclear Medicine Study in the last 2 weeks: Barium Study in the last week: : Height: 66.7 IN Weight: 196 LBS FRAX RISK QUESTIONS: History of Fracture in Adulthood: YES LEFT WRIST AGE 74 RISK FACTORS HISTORY OF: History of Wrist Fracture: LEFT WRIST AGE 15 AND AGE 74 Active: YES Postmenopausal woman: AGE 47 Take estrogen and/or progesterone medications: NOT NOW How long: CONTROL FOR 10 YEARS Lost more than 2 inches in height since high school: YES 04/30" MEDICATIONS: Additional Medications: PROPRANOLOL, PRADAXA, MIRTAZAPINE, CLONAZAPAM, TRINTELLIX HYDROBRIMIDE, FLECI NIDE, VENTOLIN, ALLOPURINOL EXAM MEASUREMENTS: Bone mineral densitometry was performed using the [employer] System. Bone mineral density as measured about the Lumbar spine is: ----- L1-L4(G/cm2): 1.011 T Score Values are as follows: ----- L2: -2.3 ----- L3: -0.6 ----- L4: -0.8 ----- L1-L4: -1.4 Bone mineral density has: Increased 1.4% since study of: 01/24/2017 Bone mineral density about the R hip (g/cm2): 0.807 Bone mineral density about the L hip (g/cm2): 0.822 T Score values are as follows: -----R Neck: -1.7 -----L Neck: -1.6 -----R Total: -1.8 -----L Total: -1.5 Bone mineral density has: Increased 3.2% since study of: 01/24/2017 IMPRESSION: Osteopenia (T Score between -2.5 and -1). There is slightly increased risk of fracture and the patient may be considered for treatment. Re-Screen 2-5 years. NOTE: T-SCORE=SD OF THE YOUNG ADULT MEAN.
--- NOTE | 2020-01-26 11:02 | MM ---
Reason for exam: screening (asymptomatic). Last mammogram was performed 1 year and 1 month ago. History: Patient is postmenopausal. US discontinued breast bx LT of the left breast, December 19, 2017. Excisional biopsy of the right breast. Took hormonal contraceptives for 8 years beginning at age 24. Took estrogen for 10 years. Physical Findings: A clinical breast exam by your physician is recommended on an annual basis and results should be correlated with mammographic findings. MG 3D Screening Mammo W/Cad Bilateral CC and MLO view(s) were taken. Prior study comparison: December 12, 2018, bilateral MG 3d screening mammo w/cad. September 15, 2018, left breast MG 3d diag mammo w/cad LT. The breast tissue is heterogeneously dense. This may lower the sensitivity of mammography. No significant changes when compared with prior studies. ASSESSMENT: Benign, BI-RAD 2 RECOMMENDATION: Routine screening mammogram of both breasts in 1 year.
== END | disposition home or self-care (01) ==
LOC: RADMAMWWP 07:23
PROVIDERS: ATTEND Obstetrics & Gynecology
DX: Z12.31 Encounter for screening mammogram for malignant neoplasm of breast (principal); M85.80 Other specified disorders of bone density and structure, unspecified site; Z78.0 Asymptomatic menopausal state
CPT/HCPCS: 77063; 77067; 77080

== ENCOUNTER → 2020-09-22 | Outpatient (CLI) | payer MEDICARE ==
--- NOTE | 2020-09-22 16:16 | US ---
EXAMINATION TYPE: US kidneys/renal and bladder DATE OF EXAM: 09/22/2020 COMPARISON: NONE CLINICAL HISTORY: N28.9 Disorder of kidney and ureter. EXAM MEASUREMENTS: Right Kidney: 10.1 x 3.7 x 5.2 cm Left Kidney: 10.5 x 4.6 x 4.1 cm Patient of large body habitus with extensive overlying bowel gas. Technically difficult, limited stud y. Right Kidney: No hydronephrosis or or shadowing renal calculi seen, limited views Left Kidney: 2.6 x 2.1 x 3.0cm cyst, limited views no hydronephrosis or shadowing renal calculi. Bladder: wnl IMPRESSION: 1. No hydronephrosis or shadowing renal calculi. Limited study due to patient's large body habitus an d extensive overlying bowel gas. 2. Left renal cyst measuring 3 cm.
== END | disposition home or self-care (01) ==
LOC: RADUSWWP 15:12
PROVIDERS: ATTEND Family Medicine
DX: N28.1 Cyst of kidney, acquired (principal); N18.9 Chronic kidney disease, unspecified
CPT/HCPCS: 76770

== ENCOUNTER → 2020-11-03 | Outpatient (CLI) | payer MEDICARE ==
[2020-11-03 09:48] LABS: Basophils # (A) 0.1 k/uL (0-0.2); Basophils % (A) 1 %; Eosinophils # (A) 0.1 k/uL (0-0.7); Eosinophils % (A) 2 %; Lymphocytes # (A) 1.5 k/uL (1.0-4.8); Lymphocytes % (A) 23 %; MCH 28.9 pg (25.0-35.0); MCHC 33.4 g/dL (31.0-37.0); MCV 86.4 fL (80.0-100.0); Mean Platelet Volume 8.8; Monocytes # (A) 0.3 k/uL (0-1.0); Monocytes % (A) 4 %; Neutrophils # (A) 4.4 k/uL (1.3-7.7); Neutrophils % (A) 69 %; Platelet Count 242 k/uL (150-450); RBC 5.21 m/uL (3.80-5.40); RDW 13.4 % (11.5-15.5); WBC 6.5 k/uL (3.8-10.6)
[2020-11-03 10:02] LABS: Albumin 4.3 g/dL (3.5-5.0); Calcium 9.7 mg/dL (8.4-10.2); Potassium 4.7 mmol/L (3.5-5.1); Total Bilirubin 0.3 mg/dL (0.2-1.3); Total Protein 7.1 g/dL (6.3-8.2)
[2020-11-03 10:06] LABS: INR 0.9 (<1.2); Prothrombin Time 10.1 sec (9.0-12.0)
--- NOTE | 2020-11-03 11:32 | XR ---
EXAMINATION TYPE: XR chest 2V DATE OF EXAM: 11/03/2020 COMPARISON: Chest x-ray 11/11/2019 HISTORY: Cough TECHNIQUE: Frontal and lateral views of the chest are obtained. FINDINGS: There is no focal air space opacity, pleural effusion, or pneumothorax seen. The cardiac silhouette size is within normal limits. The osseous structures are intact, there is multilevel spo ndylosis, aorta is dense. IMPRESSION: No acute cardiopulmonary process.
[2020-11-03 12:58] LABS: Appearance,Urine Clear (Clear); Bilirubin,Urine Negative (Negative); Blood,Urine Negative (Negative); Color,Urine Yellow; Glucose,Urine (UA) Negative (Negative); Hyaline Casts,Urine 12 /lpf (0-2); Ketones,Urine Negative (Negative); Leukocyte Esterase,Urine Trace (Negative); Mucus,Urine Moderate /hpf; Nitrite,Urine Negative (Negative); Protein,Urine Trace (Negative); RBC,Urine 1 /hpf (0-5); Specific Gravity,Urine 1.025 (1.001-1.035); Squamous Epithelial Cell,Urine <1 /hpf (0-4); Urobilinogen,Urine <2.0 mg/dL (<2.0); WBC,Urine 4 /hpf (0-5)
[2020-11-03 15:28] LABS: Chol/HDL Ratio 3.61; LDL Cholesterol,Calculated 117.4 mg/dL (0.0-131.0); VLDL Calculation 41.6 mg/dL (5.00-40.00)
== END | disposition home or self-care (01) ==
LOC: LABPAT 08:23
PROVIDERS: ATTEND Orthopaedic Surgery
DX: Z01.812 Encounter for preprocedural laboratory examination (principal); Z01.818 Encounter for other preprocedural examination; R05 Cough; Z79.01 Long term (current) use of anticoagulants
CPT/HCPCS: 71046; 80053; 80061; 81001; 85025; 85610; 85730; 87070; 87086

== ENCOUNTER → 2020-11-08 | Outpatient (CLI) | payer MEDICARE ==
--- NOTE | 2020-11-08 13:31 | CT ---
EXAMINATION TYPE: CT abdomen pelvis wo con DATE OF EXAM: 11/08/2020 COMPARISON: CT 11/11/2019 HISTORY: Generalized abdominal pain on and off x [address] DLP: 825.5 mGycm Automated exposure control for dose reduction was used. TECHNIQUE: Helical acquisition of images from the lung bases through the pelvis. No intravenous cont rast. FINDINGS: Lack of contrast could compromise sensitivity. LUNG BASES: No significant abnormality is appreciated. AORTA: No significant abnormality is appreciataed. LIVER/GB: Liver shows low attenuation, gallbladder is unremarkable. PANCREAS: No significant abnormality is seen. SPLEEN: Calcified focus along the anterior aspect measures 12 13 mm and shows a nonaggressive appeara nce. ADRENALS: No significant abnormality is seen. KIDNEYS: Cortical cyst is associated with the lateral aspect of the midpole the left kidney measuring 3.3 cm, there is no evident hydronephrosis bilaterally, no evident renal or ureteral calculus. REPRODUCTIVE ORGANS: No significant abnormality is seen. URINARY BLADDER: No significant abnormality is seen. BOWEL: No significant abnormality is seen. No evident appendicitis. Possible small hiatal hernia. FREE AIR: No Free Air is visible. ASCITES: None visible. PELVIC ADENOPATHY: None visualized. RETROPERITONEAL ADENOPATHY: No Retroperitoneal Adenopathy visible. OSSEOUS STRUCTURES: Degenerative disc changes, facet arthropathy noted the lower lumbar spine, there is anterolisthesis grade 1 L4-5 with associated loss of disc height, vacuum phenomenon, bilateral fo raminal encroachment. IMPRESSION: CORRELATE FOR HEPATIC STEATOSIS, ADDITIONAL FINDINGS ABOVE, NONCONTRAST EXAM.
== END | disposition home or self-care (01) ==
LOC: RADCTMAIN 12:22
PROVIDERS: ATTEND Family Medicine
DX: R11.2 Nausea with vomiting, unspecified (principal); R10.9 Unspecified abdominal pain
CPT/HCPCS: 74176

== ENCOUNTER 2020-11-11 08:26 | Emergency (ER) | payer MEDICARE ==
[2020-11-11 08:39] VITALS: RESP 18
[2020-11-11] MEDS ORDERED: ONDANSETRON 4 MG/2 ML VIAL IVP STA (09:06)
[2020-11-11] MEDS ORDERED: MORPHINE SULFATE 2 MG/ML SYRINGE IVP STA (09:06)
[2020-11-11] MEDS ORDERED: SODIUM CHLORIDE 0.9% 1,000 ML IV STA (09:06)
[2020-11-11] MEDS ORDERED: MAG HYDROX/AL HYDROX/SIMETH 30 ML, HYOSCYAMINE ELIXIR 10 ML, LIDOCAINE VISCOUS 2% 10 ML PO STA ×3 (09:12)
[2020-11-11] MEDS ORDERED: FAMOTIDINE 20 MG/2 ML VIAL IV STA (09:12)
--- NOTE | 2020-11-11 09:13 | ED ---
General Adult HPI - General Chief complaint: Abdominal Pain Stated complaint: Abd Pain/Vomiting/Diarrhea Time Seen by Provider: 11/11/20 08:47 Source: patient Mode of arrival: ambulatory Limitations: no limitations - History of Present Illness Initial comments: 80 -year-old female presents to the emergency room for a chief complaint of upper abdominal pain. Patient reports she has had left upper quadrant abdominal pain for about 2 weeks now. States she has had nausea vomiting since that time. Patient has also had diarrhea on and off. Patient had a CAT scan 3 days ago which was unremarkable. Patient reports she is supposed to get an ultrasound and an upper GI study but cannot get in until the of this done. Patient reports she called her doctor told her she could not get in until then and they told her to come to the ER.Patient has no other complaints at this time including shortness of breath, chest pain, headache, or visual changes. - Related Data Home Medications Medication Instructions Recorded Confirmed Mirtazapine [Remeron] 15 mg PO HS 01/06/14 11/11/20 Albuterol Sulfate [Ventolin HFA] 2 puff INHALATION RT-Q4H PRN 10/31/19 11/11/20 Cholecalciferol (Vitamin D3) 50 mcg PO DAILY 10/31/19 11/11/20 [Vitamin D3] Vortioxetine Hydrobromide 10 mg PO DAILY 10/31/19 11/11/20 [Trintellix] Apixaban [Eliquis] 5 mg PO BID 11/11/20 11/11/20 Dicyclomine [Bentyl] 10 mg PO BID@1200,2100 11/11/20 11/11/20 Dicyclomine [Bentyl] 20 mg PO DAILY 11/11/20 11/11/20 Dorzolamide 2% [Trusopt 2%] 1 drop BOTH EYES TID 11/11/20 11/11/20 Ezetimibe [Zetia] 10 mg PO HS 11/11/20 11/11/20 Famotidine [Pepcid] 20 mg PO BID 11/11/20 11/11/20 Flecainide [Tambocor] 50 mg PO BID 11/11/20 11/11/20 Ondansetron HCl [Zofran] 4 mg PO TID PRN 11/11/20 11/11/20 Propranolol HCl [Propranolol HCl 60 mg PO DAILY 11/11/20 11/11/20 ER] Previous Rx's Medication Instructions Recorded Dicyclomine [Bentyl] 20 mg PO TID PRN #20 tablet 11/11/20 Allergies Allergy/AdvReac Type Severity Reaction Status Date / Time aspartame Allergy Rash/Hives Verified 11/11/20 11:24 Sulfa (Sulfonamide Allergy Anaphylaxis Verified 11/11/20 11:24 Antibiotics) Review of Systems ROS Statement: Those systems with pertinent positive or pertinent negative responses have been documented in the HPI. ROS Other: All systems not noted in ROS Statement are negative. Past Medical History Past Medical History: COPD, Osteoarthritis (OA) Additional Past Medical History / Comment(s): SEE DR URBINA H&P, IBS, RECENTLY ON ABX FOR TOE INFECTION. HAD A PNE VACCINE NOT SURE OF THE DATE, APPROX 3 YEARS AGO. AFIB History of Any Multi-Drug Resistant Organisms: None Reported Past Surgical History: Cardiac Ablation Additional Past Surgical History / Comment(s): lumpectomy right breast -benign, bilat carpal tunnel, blepharoplasty, [facility] CATARACTS, 09-13-15 CARDIAC ABLATION. Past Anesthesia/Blood Transfusion Reactions: No Reported Reaction Past Psychological History: Anxiety, Depression Smoking Status: Never smoker Past Alcohol Use History: None Reported Past Drug Use History: None Reported - Past Family History Mother Family Medical History: Cancer Brother(s) Family Medical History: Cancer Additional Family Medical History / Comment(s): X2 General Exam Limitations: no limitations General appearance: alert, in no apparent distress Head exam: Present: atraumatic, normocephalic, normal inspection Eye exam: Present: normal appearance, PERRL, EOMI. Absent: scleral icterus, conjunctival injection, periorbital swelling ENT exam: Present: normal exam, mucous membranes moist Neck exam: Present: normal inspection, full ROM. Absent: tenderness, meningismus, lymphadenopathy Respiratory exam: Present: normal lung sounds bilaterally. Absent: respiratory distress, wheezes, rales, rhonchi, stridor Cardiovascular Exam: Present: regular rate, normal rhythm, normal heart sounds. Absent: systolic murmur, diastolic murmur, rubs, gallop, clicks GI/Abdominal exam: Present: soft, tenderness (Mild left upper quadrant tenderness without guarding or rebound.), normal bowel sounds. Absent: distended, guarding, rebound, rigid Neurological exam: Present: alert Course Vital Signs 11/11/20 11/11/20 08:36 10:30 Temperature 97.9 F Pulse Rate 60 66 Respiratory 18 18 Rate Blood Pressure 134/71 154/78 O2 Sat by Pulse 96 95 Oximetry Medical Decision Making - Medical Decision Making Vitals are stable. Patient is well-appearing. Patient does have some mild left upper quadrant tenderness. CBC is unremarkable. CMP unremarkable. Urinalysis does not show any evidence of infection. I did review CAT scan from 3 days ago which revealed a left renal cyst, no other acute process. X-ray of the abdomen today was obtained which shows nonspecific bowel gas pattern. Patient reports she is supposed to have an upper abdominal ultrasound and her doctor sent her in for this as she could not get in until the outpatient. This was performed today which showed fatty liver, renal cyst, no other acute process. Patient is scheduled for an upper GI series in 1 week. She is on Pepcid. Patient reevaluated, states pain is much better and does not hurt unless she is moving. Patient is stable for outpatient follow-up. We will discharge patient home with her home Pepcid and Zofran. We'll add Bentyl. She will contact her primary care doctor. She will return for any worsening symptoms. - Lab Data Result diagrams: 11/11/20 09:15 11/11/20 09:15 Lab Results 11/11/20 11/11/20 11/11/20 Range/Units 09:15 09:15 09:15 WBC 8.4 (3.8-10.6) k/uL RBC 5.44 H (3.80-5.40) m/uL Hgb 15.5 (11.4-16.0) gm/dL Hct 46.9 H (34.0-46.0) % MCV 86.1 (80.0-100.0) fL MCH 28.5 (25.0-35.0) pg MCHC 33.1 (31.0-37.0) g/dL RDW 13.7 (11.5-15.5) % Plt Count 248 (150-450) k/uL MPV 9.0 Neutrophils % 74 % Lymphocytes % 20 % Monocytes % 3 % Eosinophils % 1 % Basophils % 1 % Neutrophils # 6.2 (1.3-7.7) k/uL Lymphocytes # 1.7 (1.0-4.8) k/uL Monocytes # 0.3 (0-1.0) k/uL Eosinophils # 0.1 (0-0.7) k/uL Basophils # 0.1 (0-0.2) k/uL Sodium 142 (137-145) mmol/L Potassium 4.1 (3.5-5.1) mmol/L Chloride 109 H (98-107) mmol/L Carbon Dioxide 23 (22-30) mmol/L Anion Gap 10 mmol/L BUN 15 (7-17) mg/dL Creatinine 0.92 (0.52-1.04) mg/dL Est GFR (CKD-EPI)AfAm 69 (>60 ml/min/1.73 sqM) Est GFR (CKD-EPI)NonAf 60 (>60 ml/min/1.73 sqM) Glucose 122 H (74-99) mg/dL Plasma Lactic Acid Aubrey 1.4 (0.7-2.0) mmol/L Calcium 9.7 (8.4-10.2) mg/dL Total Bilirubin 0.5 (0.2-1.3) mg/dL AST 26 (14-36) U/L ALT 16 (4-34) U/L Alkaline Phosphatase 58 (38-126) U/L Total Protein 7.4 (6.3-8.2) g/dL Albumin 4.5 (3.5-5.0) g/dL Amylase 60 (30-110) U/L Lipase 85 (23-300) U/L Urine Color Urine Appearance (Clear) Urine pH (5.0-8.0) Ur Specific [place] (1.001-1.035) Urine Protein (Negative) Urine Glucose (UA) (Negative) Urine Ketones (Negative) Urine Blood (Negative) Urine Nitrite (Negative) Urine Bilirubin (Negative) Urine Urobilinogen (<2.0) mg/dL Ur Leukocyte Esterase (Negative) Urine WBC (0-5) /hpf Ur Squamous Epith Cells (0-4) /hpf Urine Mucus (None) /hpf 11/11/20 Range/Units 10:43 WBC (3.8-10.6) k/uL RBC (3.80-5.40) m/uL Hgb (11.4-16.0) gm/dL Hct (34.0-46.0) % MCV (80.0-100.0) fL MCH (25.0-35.0) pg MCHC (31.0-37.0) g/dL RDW (11.5-15.5) % Plt Count (150-450) k/uL MPV Neutrophils % % Lymphocytes % % Monocytes % % Eosinophils % % Basophils % % Neutrophils # (1.3-7.7) k/uL Lymphocytes # (1.0-4.8) k/uL Monocytes # (0-1.0) k/uL Eosinophils # (0-0.7) k/uL Basophils # (0-0.2) k/uL Sodium (137-145) mmol/L Potassium (3.5-5.1) mmol/L Chloride (98-107) mmol/L Carbon Dioxide (22-30) mmol/L Anion Gap mmol/L BUN (7-17) mg/dL Creatinine (0.52-1.04) mg/dL Est GFR (CKD-EPI)AfAm (>60 ml/min/1.73 sqM) Est GFR (CKD-EPI)NonAf (>60 ml/min/1.73 sqM) Glucose (74-99) mg/dL Plasma Lactic Acid Aubrey (0.7-2.0) mmol/L Calcium (8.4-10.2) mg/dL Total Bilirubin (0.2-1.3) mg/dL AST (14-36) U/L ALT (4-34) U/L Alkaline Phosphatase (38-126) U/L Total Protein (6.3-8.2) g/dL Albumin (3.5-5.0) g/dL Amylase (30-110) U/L Lipase (23-300) U/L Urine Color Light Yellow Urine Appearance Clear (Clear) Urine pH 5.0 (5.0-8.0) Ur Specific [place] 1.008 (1.001-1.035) Urine Protein Negative (Negative) Urine Glucose (UA) Negative (Negative) Urine Ketones Negative (Negative) Urine Blood Negative (Negative) Urine Nitrite Negative (Negative) Urine Bilirubin Negative (Negative) Urine Urobilinogen <2.0 (<2.0) mg/dL Ur Leukocyte Esterase Small H (Negative) Urine WBC 4 (0-5) /hpf Ur Squamous Epith Cells <1 (0-4) /hpf Urine Mucus Rare H (None) /hpf Disposition Clinical Impression: Abdominal pain Disposition: HOME SELF-CARE Condition: Good Instructions (If sedation given, give patient instructions): Abdominal Pain (ED) Additional Instructions: Please follow-up with your primary care doctor. In the meantime continue to take your home medications. Take Bentyl as needed for pain as well. Return to the emergency room for worsening symptoms or fevers. Prescriptions: Dicyclomine [Bentyl] 20 mg PO TID PRN #20 tablet PRN Reason: abdominal pain Is patient prescribed a controlled substance at d/c from ED?: No Referrals: Meliza Hart MD [Primary Care Provider] - 1-2 days Time of Disposition: 12:25
[2020-11-11 09:28] LABS: Basophils # (A) 0.1 k/uL (0-0.2); Basophils % (A) 1 %; Eosinophils # (A) 0.1 k/uL (0-0.7); Eosinophils % (A) 1 %; HCT 46.9 % (34.0-46.0); HGB 15.5 gm/dL (11.4-16.0); Lymphocytes # (A) 1.7 k/uL (1.0-4.8); Lymphocytes % (A) 20 %; MCH 28.5 pg (25.0-35.0); MCHC 33.1 g/dL (31.0-37.0); MCV 86.1 fL (80.0-100.0); Monocytes # (A) 0.3 k/uL (0-1.0); Monocytes % (A) 3 %; Neutrophils # (A) 6.2 k/uL (1.3-7.7); Neutrophils % (A) 74 %; Platelet Count 248 k/uL (150-450); RBC 5.44 m/uL (3.80-5.40); RDW 13.7 % (11.5-15.5); WBC 8.4 k/uL (3.8-10.6)
[2020-11-11 09:44] LABS: Albumin 4.5 g/dL (3.5-5.0); Calcium 9.7 mg/dL (8.4-10.2); Potassium 4.1 mmol/L (3.5-5.1); Total Bilirubin 0.5 mg/dL (0.2-1.3); Total Protein 7.4 g/dL (6.3-8.2)
--- NOTE | 2020-11-11 09:53 | XR ---
EXAMINATION TYPE: XR KUB DATE OF EXAM: 11/11/2020 9:47 AM CLINICAL HISTORY: Mid abdominal pain for 3 weeks TECHNIQUE: Upright images of the abdomen and pelvis were obtained COMPARISON: 01/28/2012 abdominal radiograph. 11/08/2020 CT abdomen and pelvis. FINDINGS: Nonspecific bowel gas pattern. No significant air-fluid levels. A round calcification of th e left upper quadrant correlates with a splenic calcification seen on 11/08/2020 CT comparison. There is no visceromegaly. No pneumoperitoneum. The lung bases are clear. The osseous structures are intact . IMPRESSION: Nonspecific bowel gas pattern.
[2020-11-11 10:59] LABS: Appearance,Urine Clear (Clear); Bilirubin,Urine Negative (Negative); Blood,Urine Negative (Negative); Color,Urine Light Yellow; Glucose,Urine (UA) Negative (Negative); Ketones,Urine Negative (Negative); Leukocyte Esterase,Urine Small (Negative); Mucus,Urine Rare /hpf; Nitrite,Urine Negative (Negative); Protein,Urine Negative (Negative); Specific Gravity,Urine 1.008 (1.001-1.035); Squamous Epithelial Cell,Urine <1 /hpf (0-4); Urobilinogen,Urine <2.0 mg/dL (<2.0); WBC,Urine 4 /hpf (0-5)
--- NOTE | 2020-11-11 11:10 | US ---
EXAMINATION TYPE: US abd limited kidneys/bladder DATE OF EXAM: 11/11/2020 COMPARISON: CT 11/08/2020 CLINICAL HISTORY: left/right upper quadrants. EXAM MEASUREMENTS: Liver Length: 15.6 cm Gallbladder Wall: 0.2 cm CBD: 0.5 cm Right Kidney: 9.7 x 4.1 x 4.2 cm Left Kidney: 9.7 x 4.0 x 4.5 cm Pancreas: Obscured by bowel gas Liver: Poorly visualized due to intercostal window and poor posterior beam penetration. Increased at tenuation, decreased visualization of vessels suggestive of fatty infiltrate . Gallbladder: Normal. CBD: Normal. Right Kidney: No hydronephrosis. Left Kidney: No hydronephrosis. There is a 3.1 cm benign simple unilocular cyst off the upper pole . Bladder: Normal. Bilateral Jets Seen Yes No visualized ascites. IMPRESSION: 1. Fatty liver. 2. Pancreas obscured by overlying bowel gas. 3. No acute process.
[2020-11-11 12:36] VITALS: BP 162/78; PULSE 59; TEMP 98.1
== END 2020-11-11 12:35 | disposition home or self-care (01) ==
LOC: EC 08:26
DX: N28.1 Cyst of kidney, acquired (principal); K76.0 Fatty (change of) liver, not elsewhere classified; J44.9 Chronic obstructive pulmonary disease, unspecified; Z88.2 Allergy status to sulfonamides; Z91.02 Food additives allergy status
CPT/HCPCS: 36415; 80053; 82150; 83605; 83690; 85025; 81001; 74018; 76705; 76770; 99284; 96374; 96375; 96361; J2405; J2270

== ENCOUNTER → 2020-11-17 | Outpatient (CLI) | payer MEDICARE ==
--- NOTE | 2020-11-17 11:15 | FL ---
EXAMINATION TYPE: FL UGI air DATE OF EXAM: 11/17/2020 COMPARISON: EXAMINATION TYPE: FL UGI air DATE OF EXAM: 11/17/2020 COMPARISON: CT 11/08/2020 HISTORY: Nausea TECHNIQUE: A double contrast UGI study is performed. A total of 2 minutes and 6 seconds of fluorosc opic time was utilized during procedure and 61 images obtained. FINDINGS: The esophagus shows normal motility and emptying into the stomach. No evidence of hiatal hernia or s tricture noted. The stomach shows normal distensibility, peristalsis, and mucosal folds. No evidence of any mass or ulcer disease. No significant gastroesophageal reflux was seen during real time performance of this study. There was increased transit time from the stomach into the small bowel. The duodenal bulb, sweep, and proximal small bowel loops are unremarkable. IMPRESSION: Fast transit time of barium from the stomach into the small bowel. Otherwise, normal uppe r GI study.
== END | disposition home or self-care (01) ==
LOC: RADUSWWP 07:47
PROVIDERS: ATTEND Family Medicine
DX: R63.0 Anorexia (principal)
CPT/HCPCS: 74246

== ENCOUNTER → 2020-11-25 | Outpatient (CLI) | payer MEDICARE ==
--- NOTE | 2020-11-25 15:48 | NM ---
Nuclear medicine hepatobiliary scan. HISTORY: Pain. DOSAGE: The patient received 8 ounces of ensure plus and 4.2 mCi of Technetium 99m Choletec. FINDINGS: There is normal hepatic extraction. The gallbladder is seen by 20 minutes. There is bilia ry to bowel clearance by 20 minutes. Ejection fraction is 97%. IMPRESSION: 1. No evidence of cholecystitis. 2. Ejection fraction of 97% can occasionally be associated with hyperdynamic gallbladder. Correlate c linically.
== END | disposition home or self-care (01) ==
LOC: RADNMMAIN 12:44
PROVIDERS: ATTEND Family Medicine
DX: R10.13 Epigastric pain (principal)
CPT/HCPCS: 78226; A9537

== ENCOUNTER → 2021-02-07 | Outpatient (CLI) | payer MEDICARE ==
[2021-02-07 11:37] LABS: Appearance,Urine Clear (Clear); Bilirubin,Urine Negative (Negative); Blood,Urine Negative (Negative); Color,Urine Light Yellow; Glucose,Urine (UA) Negative (Negative); Ketones,Urine Negative (Negative); Leukocyte Esterase,Urine Small (Negative); Mucus,Urine Rare /hpf; Nitrite,Urine Negative (Negative); Protein,Urine Negative (Negative); RBC,Urine <1 /hpf (0-5); Squamous Epithelial Cell,Urine <1 /hpf (0-4); Urobilinogen,Urine <2.0 mg/dL (<2.0); WBC,Urine 3 /hpf (0-5)
[2021-02-07 20:22] LABS: HCT 46.7 % (37.2-46.3); HGB 14.7 g/dL (12.0-15.0); MCHC 31.5 g/dL (32.0-37.0); Mean Platelet Volume 11.9 fL (9.5-12.2); Platelet Count 338 X 10*3/uL (140-440); RBC 5.25 X 10*6/uL (4.10-5.20); RDW 13.2 % (11.5-14.5)
[2021-02-08 09:13] LABS: % Iron Saturation 16.04 (12.00-45.00); African American GFR (CKD) 72.9 (60.0-200.0); Albumin 4.4 g/dL (3.8-4.9); Albumin/Globulin Ratio 1.68 (1.60-3.17); Anion Gap 18.1 mmol/L (4.00-12.00); BUN/Creat Ratio 17.05 Ratio (12.00-20.00); Calcium 9.7 mg/dL (8.7-10.3); Carbon Dioxide 18.9 mmol/L (21.6-31.8); Globulin 2.6 g/dL (1.6-3.3); Magnesium 2.3 mg/dL (1.5-2.4); Non-African American GFR(CKD) 62.9 (60.0-200.0); Phosphorus 4.5 mg/dL (2.4-5.1); Potassium 4.7 mmol/L (3.5-5.5); Total Bilirubin 0.2 mg/dL (0.30-1.20); Total Protein 7.1 g/dL (6.2-8.2); Uric Acid 7.1 mg/dL (2.9-7.7)
== END | disposition home or self-care (01) ==
LOC: LABWHC1 10:02
PROVIDERS: ATTEND Internal Medicine
DX: D63.1 Anemia in chronic kidney disease (principal); N18.31 Chronic kidney disease, stage 3a; N39.0 Urinary tract infection, site not specified; N25.81 Secondary hyperparathyroidism of renal origin; E55.9 Vitamin D deficiency, unspecified; M10.9 Gout, unspecified
CPT/HCPCS: 36415; 80053; 81001; 82306; 82728; 83540; 83550; 83735; 83970; 84100; 84550; 85027

== ENCOUNTER 2021-03-10 07:33 | Emergency (ER) | payer MEDICARE ==
[2021-03-10 07:38] VITALS: TEMP 97.2
[2021-03-10] MEDS ORDERED: ONDANSETRON 4 MG/2 ML VIAL IVP STA (07:58)
[2021-03-10] MEDS ORDERED: SODIUM CHLORIDE 0.9% 1,000 ML IV STA (07:58)
[2021-03-10] MEDS ORDERED: KETOROLAC 15 MG/ML 1 ML VIAL IVP STA (07:59)
--- NOTE | 2021-03-10 08:09 | ED ---
General Adult HPI - General Chief complaint: Weakness Stated complaint: Nausea/BodyAches Time Seen by Provider: 03/10/21 07:35 Source: patient, family, RN notes reviewed, old records reviewed Mode of arrival: wheelchair Limitations: no limitations - History of Present Illness Initial comments: This is a 80-year-old female who presents emergency department stating that for the last 2 weeks she's felt achy nauseated and weak. Patient states she had chrsitian ilene on her knee 2 weeks ago. Patient states she's had no fever or chills patient states she has a little suprapubic abdominal tenderness occasionally. Patient denies any dysuria or hematuria or urinary frequency. Patient denies any nausea vomiting diarrhea. Patient denies chest pain difficulty breathing shortness of breath. Patient states she did get the COVID vaccine. - Related Data Home Medications Medication Instructions Recorded Confirmed Mirtazapine [Remeron] 15 mg PO HS 01/06/14 11/11/20 Albuterol Sulfate [Ventolin HFA] 2 puff INHALATION RT-Q4H PRN 10/31/19 11/11/20 Cholecalciferol (Vitamin D3) 50 mcg PO DAILY 10/31/19 11/11/20 [Vitamin D3] Vortioxetine Hydrobromide 10 mg PO DAILY 10/31/19 11/11/20 [Trintellix] Apixaban [Eliquis] 5 mg PO BID 11/11/20 11/11/20 Dicyclomine [Bentyl] 10 mg PO BID@1200,2100 11/11/20 11/11/20 Dicyclomine [Bentyl] 20 mg PO DAILY 11/11/20 11/11/20 Dorzolamide 2% [Trusopt 2%] 1 drop BOTH EYES TID 11/11/20 11/11/20 Ezetimibe [Zetia] 10 mg PO HS 11/11/20 11/11/20 Famotidine [Pepcid] 20 mg PO BID 11/11/20 11/11/20 Flecainide [Tambocor] 50 mg PO BID 11/11/20 11/11/20 Ondansetron HCl [Zofran] 4 mg PO TID PRN 11/11/20 11/11/20 Propranolol HCl [Propranolol HCl 60 mg PO DAILY 11/11/20 11/11/20 ER] Previous Rx's Medication Instructions Recorded Dicyclomine [Bentyl] 20 mg PO TID PRN #20 tablet 11/11/20 Allergies Allergy/AdvReac Type Severity Reaction Status Date / Time aspartame Allergy Rash/Hives Verified 03/10/21 07:38 Sulfa (Sulfonamide Allergy Anaphylaxis Verified 03/10/21 07:38 Antibiotics) Review of Systems ROS Statement: Those systems with pertinent positive or pertinent negative responses have been documented in the HPI. ROS Other: All systems not noted in ROS Statement are negative. Past Medical History Past Medical History: COPD, Osteoarthritis (OA) Additional Past Medical History / Comment(s): SEE DR URBINA H&P, IBS, RECENTLY ON ABX FOR TOE INFECTION. HAD A PNE VACCINE NOT SURE OF THE DATE, APPROX 3 YEARS AGO. AFIB History of Any Multi-Drug Resistant Organisms: None Reported Past Surgical History: Cardiac Ablation, Orthopedic Surgery Additional Past Surgical History / Comment(s): lumpectomy right breast -benign, bilat carpal tunnel, blepharoplasty, [facility] CATARACTS, 09-13-15 CARDIAC ABLATION. right knee replacement 2 weeks ago Past Anesthesia/Blood Transfusion Reactions: No Reported Reaction Past Psychological History: Anxiety, Depression Smoking Status: Never smoker Past Alcohol Use History: None Reported Past Drug Use History: None Reported - Past Family History Mother Family Medical History: Cancer Brother(s) Family Medical History: Cancer Additional Family Medical History / Comment(s): X2 General Exam - General Exam Comments Initial Comments: GENERAL: Patient is well-developed and well-nourished. Patient is nontoxic and well- hydrated and is in mild distress. ENT: Neck is soft and supple. No significant lymphadenopathy is noted. Oropharynx is clear. Moist mucous membranes. Neck has full range of motion without eliciting any pain. EYES: The sclera were anicteric and conjunctiva were pink and moist. Extraocular movements were intact and pupils were equal round and reactive to light. Eyelids were unremarkable. PULMONARY: Unlabored respirations. Good breath sounds bilaterally. No audible rales rhonchi or wheezing was noted. CARDIOVASCULAR: There is a regular rate and rhythm without any murmurs gallops or rubs. ABDOMEN: Soft and nontender with normal bowel sounds. SKIN: Skin is clear with no lesions or rashes and otherwise unremarkable. NEUROLOGIC: Patient is alert and oriented x3. Cranial nerves II through XII are grossly intact. Motor and sensory are also intact. Normal speech, volume and content. Symmetrical smile. MUSCULOSKELETAL: Normal extremities with adequate strength and full range of motion. LYMPHATICS: No significant lymphadenopathy is noted PSYCHIATRIC: Normal psychiatric evaluation. Limitations: no limitations Course Vital Signs 03/10/21 03/10/21 03/10/21 07:34 10:00 11:10 Temperature 97.2 F L Pulse Rate 79 68 71 Respiratory 18 97 H 18 Rate Blood Pressure 168/85 150/72 140/63 O2 Sat by Pulse 96 98 98 Oximetry Medical Decision Making - Medical Decision Making EKG shows normal sinus rhythm at 72 bpm LA interval is on a 48 QRSs 80 QT interval is 432 QTC is 473. EKG shows no ST segment elevation or depression Chest x-ray shows no acute abnormality. Patient received Zofran and Toradol emergency department and was feeling cons iderably better. - Lab Data Result diagrams: 03/10/21 08:21 03/10/21 09:31 Lab Results 03/10/21 03/10/21 03/10/21 Range/Units 08:21 08:21 08:21 WBC 9.4 (3.8-10.6) k/uL RBC 4.51 (3.80-5.40) m/uL Hgb 12.8 (11.4-16.0) gm/dL Hct 39.0 (34.0-46.0) % MCV 86.5 (80.0-100.0) fL MCH 28.3 (25.0-35.0) pg MCHC 32.7 (31.0-37.0) g/dL RDW 13.4 (11.5-15.5) % Plt Count 331 (150-450) k/uL MPV 9.0 Neutrophils % 80 % Lymphocytes % 12 % Monocytes % 3 % Eosinophils % 4 % Basophils % 0 % Neutrophils # 7.5 (1.3-7.7) k/uL Lymphocytes # 1.1 (1.0-4.8) k/uL Monocytes # 0.3 (0-1.0) k/uL Eosinophils # 0.4 (0-0.7) k/uL Basophils # 0.0 (0-0.2) k/uL PT 10.3 (9.0-12.0) sec INR 1.0 (<1.2) APTT 25.0 (22.0-30.0) sec Sodium (137-145) mmol/L Potassium (3.5-5.1) mmol/L Chloride (98-107) mmol/L Carbon Dioxide (22-30) mmol/L Anion Gap mmol/L BUN (7-17) mg/dL Creatinine (0.52-1.04) mg/dL Est GFR (CKD-EPI)AfAm (>60 ml/min/1.73 sqM) Est GFR (CKD-EPI)NonAf (>60 ml/min/1.73 sqM) Glucose (74-99) mg/dL Plasma Lactic Acid Aubrey (0.7-2.0) mmol/L Calcium (8.4-10.2) mg/dL Magnesium (1.6-2.3) mg/dL Total Bilirubin (0.2-1.3) mg/dL AST (14-36) U/L ALT (4-34) U/L Alkaline Phosphatase (38-126) U/L Troponin I (0.000-0.034) ng/mL Total Protein (6.3-8.2) g/dL Albumin (3.5-5.0) g/dL Urine Color Yellow Urine Appearance Cloudy H (Clear) Urine pH 8.0 (5.0-8.0) Ur Specific [place] 1.014 (1.001-1.035) Urine Protein Negative (Negative) Urine Glucose (UA) Negative (Negative) Urine Ketones Negative (Negative) Urine Blood Negative (Negative) Urine Nitrite Negative (Negative) Urine Bilirubin Negative (Negative) Urine Urobilinogen <2.0 (<2.0) mg/dL Ur Leukocyte Esterase Negative (Negative) Urine WBC 1 (0-5) /hpf Amorphous Sediment Occasional H (None) /hpf Urine Mucus Rare H (None) /hpf Coronavirus (PCR) (Not Detectd) 03/10/21 03/10/21 03/10/21 Range/Units 08:21 08:21 09:31 WBC (3.8-10.6) k/uL RBC (3.80-5.40) m/uL Hgb (11.4-16.0) gm/dL Hct (34.0-46.0) % MCV (80.0-100.0) fL MCH (25.0-35.0) pg MCHC (31.0-37.0) g/dL RDW (11.5-15.5) % Plt Count (150-450) k/uL MPV Neutrophils % % Lymphocytes % % Monocytes % % Eosinophils % % Basophils % % Neutrophils # (1.3-7.7) k/uL Lymphocytes # (1.0-4.8) k/uL Monocytes # (0-1.0) k/uL Eosinophils # (0-0.7) k/uL Basophils # (0-0.2) k/uL PT (9.0-12.0) sec INR (<1.2) APTT (22.0-30.0) sec Sodium 141 (137-145) mmol/L Potassium 4.0 (3.5-5.1) mmol/L Chloride 111 H (98-107) mmol/L Carbon Dioxide 24 (22-30) mmol/L Anion Gap 6 mmol/L BUN 13 (7-17) mg/dL Creatinine 0.65 (0.52-1.04) mg/dL Est GFR (CKD-EPI)AfAm >90 (>60 ml/min/1.73 sqM) Est GFR (CKD-EPI)NonAf 86 (>60 ml/min/1.73 sqM) Glucose 113 H (74-99) mg/dL Plasma Lactic Acid Aubrey 1.4 (0.7-2.0) mmol/L Calcium 8.5 (8.4-10.2) mg/dL Magnesium 1.8 (1.6-2.3) mg/dL Total Bilirubin 0.5 (0.2-1.3) mg/dL AST 18 (14-36) U/L ALT 9 (4-34) U/L Alkaline Phosphatase 60 (38-126) U/L Troponin I (0.000-0.034) ng/mL Total Protein 6.0 L (6.3-8.2) g/dL Albumin 3.2 L (3.5-5.0) g/dL Urine Color Urine Appearance (Clear) Urine pH (5.0-8.0) Ur Specific [place] (1.001-1.035) Urine Protein (Negative) Urine Glucose (UA) (Negative) Urine Ketones (Negative) Urine Blood (Negative) Urine Nitrite (Negative) Urine Bilirubin (Negative) Urine Urobilinogen (<2.0) mg/dL Ur Leukocyte Esterase (Negative) Urine WBC (0-5) /hpf Amorphous Sediment (None) /hpf Urine Mucus (None) /hpf Coronavirus (PCR) Not Detected (Not Detectd) 03/10/21 Range/Units 09:31 WBC (3.8-10.6) k/uL RBC (3.80-5.40) m/uL Hgb (11.4-16.0) gm/dL Hct (34.0-46.0) % MCV (80.0-100.0) fL MCH (25.0-35.0) pg MCHC (31.0-37.0) g/dL RDW (11.5-15.5) % Plt Count (150-450) k/uL MPV Neutrophils % % Lymphocytes % % Monocytes % % Eosinophils % % Basophils % % Neutrophils # (1.3-7.7) k/uL Lymphocytes # (1.0-4.8) k/uL Monocytes # (0-1.0) k/uL Eosinophils # (0-0.7) k/uL Basophils # (0-0.2) k/uL PT (9.0-12.0) sec INR (<1.2) APTT (22.0-30.0) sec Sodium (137-145) mmol/L Potassium (3.5-5.1) mmol/L Chloride (98-107) mmol/L Carbon Dioxide (22-30) mmol/L Anion Gap mmol/L BUN (7-17) mg/dL Creatinine (0.52-1.04) mg/dL Est GFR (CKD-EPI)AfAm (>60 ml/min/1.73 sqM) Est GFR (CKD-EPI)NonAf (>60 ml/min/1.73 sqM) Glucose (74-99) mg/dL Plasma Lactic Acid Aubrey (0.7-2.0) mmol/L Calcium (8.4-10.2) mg/dL Magnesium (1.6-2.3) mg/dL Total Bilirubin (0.2-1.3) mg/dL AST (14-36) U/L ALT (4-34) U/L Alkaline Phosphatase (38-126) U/L Troponin I <0.012 (0.000-0.034) ng/mL Total Protein (6.3-8.2) g/dL Albumin (3.5-5.0) g/dL Urine Color Urine Appearance (Clear) Urine pH (5.0-8.0) Ur Specific [place] (1.001-1.035) Urine Protein (Negative) Urine Glucose (UA) (Negative) Urine Ketones (Negative) Urine Blood (Negative) Urine Nitrite (Negative) Urine Bilirubin (Negative) Urine Urobilinogen (<2.0) mg/dL Ur Leukocyte Esterase (Negative) Urine WBC (0-5) /hpf Amorphous Sediment (None) /hpf Urine Mucus (None) /hpf Coronavirus (PCR) (Not Detectd) Disposition Clinical Impression: Nausea, Myalgia Disposition: HOME SELF-CARE Instructions (If sedation given, give patient instructions): Acute Nausea and Vomiting (ED) Additional Instructions: Take Zofran as prescribed Is patient prescribed a controlled substance at d/c from ED?: No Referrals: Meliza Hart MD [Primary Care Provider] - 1-2 days Time of Disposition: 11:26
[2021-03-10 08:46] LABS: Basophils % (A) 0 %; Eosinophils # (A) 0.4 k/uL (0-0.7); Eosinophils % (A) 4 %; HGB 12.8 gm/dL (11.4-16.0); Lymphocytes # (A) 1.1 k/uL (1.0-4.8); Lymphocytes % (A) 12 %; MCH 28.3 pg (25.0-35.0); MCHC 32.7 g/dL (31.0-37.0); MCV 86.5 fL (80.0-100.0); Monocytes # (A) 0.3 k/uL (0-1.0); Monocytes % (A) 3 %; Neutrophils # (A) 7.5 k/uL (1.3-7.7); Neutrophils % (A) 80 %; Platelet Count 331 k/uL (150-450); RBC 4.51 m/uL (3.80-5.40); RDW 13.4 % (11.5-15.5); WBC 9.4 k/uL (3.8-10.6)
--- NOTE | 2021-03-10 08:55 | XR ---
EXAMINATION TYPE: XR chest 2V DATE OF EXAM: 03/10/2021 COMPARISON: 11/03/2020 TECHNIQUE: PA and lateral views submitted. HISTORY: Weakness FINDINGS: The lungs are clear and there is no pneumothorax, pleural effusion, or focal pneumonia. Heart size normal. Mildly prominent interstitial. Hypertrophic and degenerative changes spine. Mild hyperinflati on correlate for COPD. IMPRESSION: 1. Mild COPD no definite acute process. Correlate for interstitial chronic lung disease or bronchitis . Mild interstitial pneumonitis not excluded..
[2021-03-10 09:24] LABS: Prothrombin Time 10.3 sec (9.0-12.0)
[2021-03-10 09:43] LABS: Amorphous Sediment,Urine Occasional /hpf; Appearance,Urine Cloudy (Clear); Bilirubin,Urine Negative (Negative); Blood,Urine Negative (Negative); Color,Urine Yellow; Glucose,Urine (UA) Negative (Negative); Ketones,Urine Negative (Negative); Leukocyte Esterase,Urine Negative (Negative); Mucus,Urine Rare /hpf; Nitrite,Urine Negative (Negative); Protein,Urine Negative (Negative); Specific Gravity,Urine 1.014 (1.001-1.035); Urobilinogen,Urine <2.0 mg/dL (<2.0); WBC,Urine 1 /hpf (0-5)
[2021-03-10 10:04] LABS: ALT 9 U/L (4-34); AST 18 U/L (14-36); African American GFR (CKD) >90 (>60 ml/min/1.73 sqM); Albumin 3.2 g/dL (3.5-5.0); Alkaline Phosphatase 60 U/L (38-126); Anion Gap 6 mmol/L; Blood Urea Nitrogen 13 mg/dL (7-17); Calcium 8.5 mg/dL (8.4-10.2); Carbon Dioxide 24 mmol/L (22-30); Chloride 111 mmol/L (98-107); Glucose 113 mg/dL (74-99); Magnesium 1.8 mg/dL (1.6-2.3); Non-African American GFR(CKD) 86 (>60 ml/min/1.73 sqM); Sodium 141 mmol/L (137-145); Total Bilirubin 0.5 mg/dL (0.2-1.3)
[2021-03-10 11:11] VITALS: RESP 18
[2021-03-10] MEDS ORDERED: ONDANSETRON 4 MG ODT STARTER PACK 2 TAB BTL PO STA (11:27)
[2021-03-10 12:40] VITALS: BP 140/78; PULSE 80
== END 2021-03-10 12:40 | disposition home or self-care (01) ==
LOC: EC 07:33
DX: R11.0 Nausea (principal); M79.10 Myalgia, unspecified site; R53.1 Weakness; J44.9 Chronic obstructive pulmonary disease, unspecified; Z20.822 Contact with and (suspected) exposure to COVID-19; Z88.8 Allergy status to other drugs, medicaments and biological substances; Z88.2 Allergy status to sulfonamides
CPT/HCPCS: 36415; 93005; 80053; 83605; 83735; 84484; 85025; 85610; 85730; 81001; 87635; 71046; 99285; 96374; 96375; 96361; J2405; J1885; S0119

== ENCOUNTER 2021-09-03 01:33 | Emergency (ER) | payer MEDICARE ==
[2021-09-03] MEDS ORDERED: MORPHINE SULFATE 4 MG/ML SYRINGE IV STA (03:53)
[2021-09-03] MEDS ORDERED: SODIUM CHLORIDE 0.9% 1,000 ML IV STA (03:53)
[2021-09-03] MEDS ORDERED: ONDANSETRON 4 MG/2 ML VIAL IVP STA (03:53)
--- NOTE | 2021-09-03 03:53 | ED ---
Abdominal Pain HPI - General Chief Complaint: Abdominal Pain Stated Complaint: LT flank pain Time Seen by Provider: 09/03/21 03:24 Source: patient, RN notes reviewed, old records reviewed Mode of arrival: ambulatory Limitations: no limitations - History of Present Illness Initial Comments: This is a 81-year-old female to the emergency department for evaluation she presents today for evaluation of flank pain abdominal pain and maybe some dysuria. Maybe some suprapubic abdominal pain. No fevers no nausea no vomiting no prior history of similar pain in the pastsurgical history. Patient denies any significant abdominal tenderness. Denies diarrhea. No family members with similar complaint. Pain is left upper quadrant left flank and into her back MD Complaint: abdominal pain, flank pain -: hour(s) Location: diffuse, LLQ, L flank Radiation: L flank Migration to: L flank Severity: moderate Severity scale (1-10): 7 Quality: sharp Consistency: intermittent Worsens With: nothing Associated Symptoms: nausea Treatments Prior to Arrival: other (none) - Related Data Home Medications Medication Instructions Recorded Confirmed Mirtazapine [Remeron] 15 mg PO HS 01/06/14 11/11/20 Albuterol Sulfate [Ventolin HFA] 2 puff INHALATION RT-Q4H PRN 10/31/19 11/11/20 Cholecalciferol (Vitamin D3) 50 mcg PO DAILY 10/31/19 11/11/20 [Vitamin D3] Vortioxetine Hydrobromide 10 mg PO DAILY 10/31/19 11/11/20 [Trintellix] Apixaban [Eliquis] 5 mg PO BID 11/11/20 11/11/20 Dicyclomine [Bentyl] 10 mg PO BID@1200,2100 11/11/20 11/11/20 Dicyclomine [Bentyl] 20 mg PO DAILY 11/11/20 11/11/20 Dorzolamide 2% [Trusopt 2%] 1 drop BOTH EYES TID 11/11/20 11/11/20 Ezetimibe [Zetia] 10 mg PO HS 11/11/20 11/11/20 Famotidine [Pepcid] 20 mg PO BID 11/11/20 11/11/20 Flecainide [Tambocor] 50 mg PO BID 11/11/20 11/11/20 Propranolol HCl [Propranolol HCl 60 mg PO DAILY 11/11/20 11/11/20 ER] ondansetron HCL [Zofran] 4 mg PO TID PRN 11/11/20 11/11/20 Previous Rx's Medication Instructions Recorded Dicyclomine [Bentyl] 20 mg PO TID PRN #20 tablet 11/11/20 Cephalexin [Keflex] 500 mg PO Q6HR #20 cap 09/03/21 Allergies Allergy/AdvReac Type Severity Reaction Status Date / Time aspartame Allergy Rash/Hives Verified 09/03/21 01:38 Sulfa (Sulfonamide Allergy Anaphylaxis Verified 09/03/21 01:38 Antibiotics) Review of Systems ROS Statement: Those systems with pertinent positive or pertinent negative responses have been documented in the HPI. ROS Other: All systems not noted in ROS Statement are negative. Past Medical History Past Medical History: COPD, Osteoarthritis (OA), Rheumatoid Arthritis (RA) Additional Past Medical History / Comment(s): SEE DR URBINA H&P, IBS, RECENTLY ON ABX FOR TOE INFECTION. HAD A PNE VACCINE NOT SURE OF THE DATE, APPROX 3 YEARS AGO. AFIB History of Any Multi-Drug Resistant Organisms: None Reported Past Surgical History: Cardiac Ablation, Orthopedic Surgery Additional Past Surgical History / Comment(s): lumpectomy right breast -benign, bilat carpal tunnel, blepharoplasty, [facility] CAT[facility]S, 09-12- CARDIAC ABLATION. right knee replacement 2 weeks ago Past Anesthesia/Blood Transfusion Reactions: No Reported Reaction Past Psychological History: Anxiety, Depression Smoking Status: Never smoker Past Alcohol Use History: None Reported Past Drug Use History: None Reported - Past Family History Mother Family Medical History: Cancer Brother(s) Family Medical History: Cancer Additional Family Medical History / Comment(s): X2 General Exam Limitations: no limitations General appearance: alert, in no apparent distress Head exam: Present: atraumatic, normocephalic, normal inspection Eye exam: Present: normal appearance, PERRL, EOMI. Absent: scleral icterus, conjunctival injection, periorbital swelling ENT exam: Present: normal exam, mucous membranes moist Neck exam: Present: normal inspection. Absent: tenderness, meningismus, lymphadenopathy Respiratory exam: Present: normal lung sounds bilaterally. Absent: respiratory distress, wheezes, rales, rhonchi, stridor Cardiovascular Exam: Present: regular rate, normal rhythm, normal heart sounds. Absent: systolic murmur, diastolic murmur, rubs, gallop, clicks GI/Abdominal exam: Present: soft, normal bowel sounds. Absent: distended, tenderness, guarding, rebound, rigid Extremities exam: Present: normal inspection, full ROM, normal capillary refill. Absent: tenderness, pedal edema, joint swelling, calf tenderness Back exam: Present: normal inspection Neurological exam: Present: alert, oriented X3, CN II-XII intact Psychiatric exam: Present: normal affect, normal mood Skin exam: Present: warm, dry, intact, normal color. Absent: rash Course Vital Signs 09/03/21 09/03/21 09/03/21 01:35 04:33 05:57 Temperature 97.5 F L 97.7 F 97.9 F Pulse Rate 63 59 L 60 Respiratory 18 16 16 Rate Blood Pressure 153/79 138/89 129/81 O2 Sat by Pulse 99 97 98 Oximetry - Reevaluation(s) Reevaluation #1: 09/03/21 Medical record is reviewed Reevaluation #2: 09/03/21 Patient informed of results and questions answered Reevaluation #3: 09/03/21 Patient symptoms are significantly improved Medical Decision Making - Medical Decision Making 81 female of abdominal pain. Patient likely with acute pyelonephritis. Nothing found on computed tomography scan. Patient tolerating oral intake and can be discharged - Lab Data Result diagrams: 09/03/21 04:19 09/03/21 04:19 Lab Results 09/03/21 09/03/21 09/03/21 Range/Units 04:19 04:19 04:19 WBC 7.1 (3.8-10.6) k/uL RBC 5.21 (3.80-5.40) m/uL Hgb 15.0 (11.4-16.0) gm/dL Hct 46.2 H (34.0-46.0) % MCV 88.6 (80.0-100.0) fL MCH 28.7 (25.0-35.0) pg MCHC 32.4 (31.0-37.0) g/dL RDW 17.4 H (11.5-15.5) % Plt Count 304 (150-450) k/uL MPV 8.4 Neutrophils % 68 % Lymphocytes % 23 % Monocytes % 5 % Eosinophils % 2 % Basophils % 1 % Neutrophils # 4.8 (1.3-7.7) k/uL Lymphocytes # 1.6 (1.0-4.8) k/uL Monocytes # 0.3 (0-1.0) k/uL Eosinophils # 0.1 (0-0.7) k/uL Basophils # 0.0 (0-0.2) k/uL Anisocytosis Slight Sodium 140 (137-145) mmol/L Potassium 4.1 (3.5-5.1) mmol/L Chloride 104 (98-107) mmol/L Carbon Dioxide 27 (22-30) mmol/L Anion Gap 9 mmol/L BUN 20 H (7-17) mg/dL Creatinine 0.78 (0.52-1.04) mg/dL Est GFR (CKD-EPI)AfAm 84 (>60 ml/min/1.73 sqM) Est GFR (CKD-EPI)NonAf 73 (>60 ml/min/1.73 sqM) Glucose 102 H (74-99) mg/dL Plasma Lactic Acid Aubrey (0.7-2.0) mmol/L Calcium 9.2 (8.4-10.2) mg/dL Total Bilirubin 0.6 (0.2-1.3) mg/dL AST 22 (14-36) U/L ALT 14 (4-34) U/L Alkaline Phosphatase 56 (38-126) U/L Total Protein 7.8 (6.3-8.2) g/dL Albumin 4.5 (3.5-5.0) g/dL Amylase 73 (30-110) U/L Lipase 91 (23-300) U/L Urine Color Yellow Urine Appearance Clear (Clear) Urine pH 5.0 (5.0-8.0) Ur Specific Cos Cob 1.030 (1.001-1.035) Urine Protein Trace H (Negative) Urine Glucose (UA) Negative (Negative) Urine Ketones Negative (Negative) Urine Blood Trace H (Negative) Urine Nitrite Negative (Negative) Urine Bilirubin Negative (Negative) Urine Urobilinogen <2.0 (<2.0) mg/dL Ur Leukocyte Esterase Moderate H (Negative) Urine RBC 1 (0-5) /hpf Urine WBC 31 H (0-5) /hpf Ur Squamous Epith Cells 1 (0-4) /hpf Calcium Oxalate Crystal Few H (None) /hpf Urine Mucus Few H (None) /hpf 09/03/21 Range/Units 04:19 WBC (3.8-10.6) k/uL RBC (3.80-5.40) m/uL Hgb (11.4-16.0) gm/dL Hct (34.0-46.0) % MCV (80.0-100.0) fL MCH (25.0-35.0) pg MCHC (31.0-37.0) g/dL RDW (11.5-15.5) % Plt Count (150-450) k/uL MPV Neutrophils % % Lymphocytes % % Monocytes % % Eosinophils % % Basophils % % Neutrophils # (1.3-7.7) k/uL Lymphocytes # (1.0-4.8) k/uL Monocytes # (0-1.0) k/uL Eosinophils # (0-0.7) k/uL Basophils # (0-0.2) k/uL Anisocytosis Sodium (137-145) mmol/L Potassium (3.5-5.1) mmol/L Chloride (98-107) mmol/L Carbon Dioxide (22-30) mmol/L Anion Gap mmol/L BUN (7-17) mg/dL Creatinine (0.52-1.04) mg/dL Est GFR (CKD-EPI)AfAm (>60 ml/min/1.73 sqM) Est GFR (CKD-EPI)NonAf (>60 ml/min/1.73 sqM) Glucose (74-99) mg/dL Plasma Lactic Acid Aubrey 1.9 (0.7-2.0) mmol/L Calcium (8.4-10.2) mg/dL Total Bilirubin (0.2-1.3) mg/dL AST (14-36) U/L ALT (4-34) U/L Alkaline Phosphatase (38-126) U/L Total Protein (6.3-8.2) g/dL Albumin (3.5-5.0) g/dL Amylase (30-110) U/L Lipase (23-300) U/L Urine Color Urine Appearance (Clear) Urine pH (5.0-8.0) Ur Specific Cos Cob (1.001-1.035) Urine Protein (Negative) Urine Glucose (UA) (Negative) Urine Ketones (Negative) Urine Blood (Negative) Urine Nitrite (Negative) Urine Bilirubin (Negative) Urine Urobilinogen (<2.0) mg/dL Ur Leukocyte Esterase (Negative) Urine RBC (0-5) /hpf Urine WBC (0-5) /hpf Ur Squamous Epith Cells (0-4) /hpf Calcium Oxalate Crystal (None) /hpf Urine Mucus (None) /hpf - Radiology Data Radiology results: report reviewed (CT of the abdomen and pelvis is negative for acute disease), image reviewed Disposition Clinical Impression: Abdominal pain, UTI (urinary tract infection), Pyelonephritis Disposition: HOME SELF-CARE Condition: Good Instructions (If sedation given, give patient instructions): Urinary Tract Infection in Women (ED), Abdominal Pain (ED) Prescriptions: Cephalexin [Keflex] 500 mg PO Q6HR #20 cap Is patient prescribed a controlled substance at d/c from ED?: No Referrals: Holly Broderick MD [Primary Care Provider] - 1-2 days
[2021-09-03 04:29] LABS: Anisocytosis Slight; Basophils % (A) 1 %; Eosinophils # (A) 0.1 k/uL (0-0.7); Eosinophils % (A) 2 %; HCT 46.2 % (34.0-46.0); Lymphocytes # (A) 1.6 k/uL (1.0-4.8); Lymphocytes % (A) 23 %; MCH 28.7 pg (25.0-35.0); MCHC 32.4 g/dL (31.0-37.0); MCV 88.6 fL (80.0-100.0); Mean Platelet Volume 8.4; Monocytes # (A) 0.3 k/uL (0-1.0); Monocytes % (A) 5 %; Neutrophils # (A) 4.8 k/uL (1.3-7.7); Neutrophils % (A) 68 %; Platelet Count 304 k/uL (150-450); RBC 5.21 m/uL (3.80-5.40); RDW 17.4 % (11.5-15.5); WBC 7.1 k/uL (3.8-10.6)
[2021-09-03 04:34] VITALS: RESP 16
[2021-09-03 04:37] LABS: Appearance,Urine Clear (Clear); Bilirubin,Urine Negative (Negative); Blood,Urine Trace (Negative); Calcium Oxalate Crystals,Urine Few /hpf; Color,Urine Yellow; Glucose,Urine (UA) Negative (Negative); Ketones,Urine Negative (Negative); Leukocyte Esterase,Urine Moderate (Negative); Mucus,Urine Few /hpf; Nitrite,Urine Negative (Negative); Protein,Urine Trace (Negative); RBC,Urine 1 /hpf (0-5); Squamous Epithelial Cell,Urine 1 /hpf (0-4); Urobilinogen,Urine <2.0 mg/dL (<2.0); WBC,Urine 31 /hpf (0-5)
[2021-09-03 04:41] LABS: Albumin 4.5 g/dL (3.5-5.0); Calcium 9.2 mg/dL (8.4-10.2); Potassium 4.1 mmol/L (3.5-5.1); Total Bilirubin 0.6 mg/dL (0.2-1.3); Total Protein 7.8 g/dL (6.3-8.2)
--- NOTE | 2021-09-03 05:08 | CT ---
EXAMINATION TYPE: CT abdomen pelvis w con DATE OF EXAM: 09/03/2021 COMPARISON: 11/08/2020 HISTORY: PAIN CT DLP: 1210 mGycm Automated exposure control for dose reduction was used. CONTRAST: Performed with IV Contrast, patient injected with 100 mL of Isovue 300. Images obtained from the diaphragm to the floor the pelvis with IV contrast. Lung bases are clear. No pleural effusion. Heart size is normal. No pericardial effusion. Liver spleen appear intact. There is 1.5 cm anterior splenic granuloma with calcification. There is n o pancreatic mass. The stomach is intact. Gallbladder is intact. The bile ducts are not dilated. There is no adrenal mass. Kidneys show satisfactory contrast opacification. There is no hydronephrosi s. Delayed images show normal renal excretion. There is 3.5 cm cortical cyst lateral left kidney. The re is no retroperitoneal adenopathy. There is no inguinal hernia. No free fluid in the pelvis. No pel edmund mass. Appendix is posterior and appears normal. There is no mesenteric edema. No ascites or free air. No lee wel obstruction. Urinary bladder is almost empty. Uterus is anteverted. There is a first-degree L4-5 degenerative spondylolisthesis. No lumbar compression fracture. There is vacuum disc at L4-5. The bony pelvis appears intact. The hip joints are intact. IMPRESSION: No acute abnormality of the abdomen and pelvis. No adverse change compared to old exam. Normal append ix.
[2021-09-03] MEDS ORDERED: cefTRIAXone IN SWFI 1,000 MG/10 ML SYRINGE IVP STA (05:40)
[2021-09-03] MEDS ORDERED: CEPHALEXIN 500MG STARTER PACK 4 CAP BTL PO STA (05:41)
[2021-09-03 06:08] VITALS: BP 129/81; PULSE 60; TEMP 97.9
== END 2021-09-03 05:57 | disposition home or self-care (01) ==
LOC: EC 01:33
DX: N12 Tubulo-interstitial nephritis, not specified as acute or chronic (principal); I48.91 Unspecified atrial fibrillation; J44.9 Chronic obstructive pulmonary disease, unspecified; M19.90 Unspecified osteoarthritis, unspecified site; Z79.01 Long term (current) use of anticoagulants; Z88.2 Allergy status to sulfonamides; Z88.8 Allergy status to other drugs, medicaments and biological substances; Z79.899 Other long term (current) drug therapy
CPT/HCPCS: 36415; 80053; 82150; 83605; 83690; 85025; 81001; 87086; 87077; 87186; 74177; 99284; 96374; 96375; 96361; J2270; J2405; J0696

== ENCOUNTER → 2022-02-26 | Outpatient (CLI) | payer MEDICARE ==
[2022-02-26 14:28] LABS: Basophils # (A) 0.06 X 10*3/uL (0.00-0.10); Basophils % (A) 0.9 %; Eosinophils # (A) 0.19 X 10*3/uL (0.04-0.35); Eosinophils % (A) 2.7 %; HCT 46.8 % (37.2-46.3); HGB 14.6 g/dL (12.0-15.0); Immature Grans, Automated 0.3 %; Lymphocytes # (A) 0.99 X 10*3/uL (0.90-5.00); Lymphocytes % (A) 14.1 %; MCH 27.8 pg (27.0-32.0); MCHC 31.2 g/dL (32.0-37.0); Mean Platelet Volume 11.4 fL (9.5-12.2); Monocytes # (A) 0.36 X 10*3/uL (0.20-1.00); Monocytes % (A) 5.1 %; NRBC Per 100 WBC 0 /100 WBCS (0.0-0.0); Neutrophils # (A) 5.38 X 10*3/uL (1.80-7.70); Neutrophils % (A) 76.9 %; Platelet Count 278 X 10*3/uL (140-440); RBC 5.26 X 10*6/uL (4.10-5.20); RDW 12.5 % (11.5-14.5)
[2022-02-26 15:24] LABS: ALT 7 U/L (8-44); AST 15 U/L (13-35); African American GFR (CKD) 86.6 (60.0-200.0); Albumin 4.1 g/dL (3.8-4.9); Albumin/Globulin Ratio 1.67 (1.60-3.17); Alkaline Phosphatase 61 U/L (41-126); BUN/Creat Ratio 13.83 Ratio (12.00-20.00); Blood Urea Nitrogen 10.5 mg/dL (9.0-27.0); Calcium 9.4 mg/dL (8.7-10.3); Carbon Dioxide 23.4 mmol/L (20.0-27.5); Chloride 106 mmol/L (96-109); Chol/HDL Ratio 3.85 Ratio; Globulin 2.5 g/dL (1.6-3.3); Glucose 104 mg/dL (70-110); LDL Cholesterol,Calculated 125.7 mg/dL (0.0-131.0); Non-African American GFR(CKD) 74.7 (60.0-200.0); Potassium 4.4 mmol/L (3.5-5.5); Sodium 142 mmol/L (135-145); Total Protein 6.6 g/dL (6.2-8.2)
== END | disposition home or self-care (01) ==
LOC: LABWHC1 08:39
PROVIDERS: ATTEND Internal Medicine
DX: R73.03 Prediabetes (principal); Z86.79 Personal history of other diseases of the circulatory system
CPT/HCPCS: 36415; 80053; 80061; 83036; 84443; 85025

== ENCOUNTER → 2022-09-10 | Outpatient (CLI) | payer MEDICARE ==
[2022-09-10 15:40] LABS: Appearance,Urine Clear (Clear); Bilirubin,Urine Negative (Negative); Blood,Urine Negative (Negative); Color,Urine Yellow (Yellow); Ketones,Urine Negative (Negative); Nitrite,Urine Negative (Negative); Specific Gravity,Urine 1.009 (1.001-1.030); Urobilinogen,Urine 0.2 (0.2,1.0)
[2022-09-10 15:47] LABS: Bacteria,Urine None Seen /HPF (None Seen)
[2022-09-10 16:10] LABS: % Iron Saturation 26.69 (12.00-45.00); ALT 16 U/L (8-44); AST 20 U/L (13-35); African American GFR (CKD) 71.7 (60.0-200.0); Albumin 4.6 g/dL (3.8-4.9); Alkaline Phosphatase 60 U/L (41-126); BUN/Creat Ratio 21.43 Ratio (12.00-20.00); Blood Urea Nitrogen 18.9 mg/dL (9.0-27.0); Calcium 9.8 mg/dL (8.7-10.3); Carbon Dioxide 26.4 mmol/L (20.0-27.5); Chloride 103 mmol/L (96-109); Globulin 2.5 g/dL (1.6-3.3); Glucose 104 mg/dL (70-110); Iron 108 ug/dL (50-170); Magnesium 2.2 mg/dL (1.5-2.4); Non-African American GFR(CKD) 61.9 (60.0-200.0); Phosphorus 3.8 mg/dL (2.4-5.1); Potassium 4.8 mmol/L (3.5-5.5); Sodium 140 mmol/L (135-145); Total Iron Binding Capacity 405 ug/dL (228-460); Total Protein 7.1 g/dL (6.2-8.2); Uric Acid 7.5 mg/dL (2.9-7.7)
[2022-09-10 16:50] LABS: Basophils # (A) 0.07 X 10*3/uL (0.00-0.10); Basophils % (A) 0.9 %; Eosinophils # (A) 0.15 X 10*3/uL (0.04-0.35); HCT 47.7 % (37.2-46.3); HGB 15.2 g/dL (12.0-15.0); Immature Grans, Automated 0.3 %; Lymphocytes % (A) 15.9 %; MCH 30.1 pg (27.0-32.0); MCHC 31.9 g/dL (32.0-37.0); MCV 94.5 fL (80.0-97.0); Mean Platelet Volume 11.7 fL (9.5-12.2); Monocytes # (A) 0.31 X 10*3/uL (0.20-1.00); Monocytes % (A) 4.1 %; NRBC Per 100 WBC 0 /100 WBCS (0.0-0.0); Neutrophils # (A) 5.81 X 10*3/uL (1.80-7.70); Neutrophils % (A) 76.8 %; Platelet Count 275 X 10*3/uL (140-440); RBC 5.05 X 10*6/uL (4.10-5.20); RDW 13.6 % (11.5-14.5); WBC 7.56 X 10*3/uL (4.50-10.00)
[2022-09-10 18:00] LABS: Chol/HDL Ratio 3.29 Ratio; LDL Cholesterol,Calculated 133.9 mg/dL (0.0-131.0)
[2022-09-10 19:46] LABS: Microalbumin Creatinine Ratio <30 mg/g Creat (0-30); Urine Creatinine 53.5 mg/dL (28.0-217.0)
== END | disposition home or self-care (01) ==
LOC: LABWHC1 08:02
PROVIDERS: ATTEND Internal Medicine
DX: E55.9 Vitamin D deficiency, unspecified (principal); N39.0 Urinary tract infection, site not specified; N25.81 Secondary hyperparathyroidism of renal origin; D63.1 Anemia in chronic kidney disease; M10.9 Gout, unspecified; R73.03 Prediabetes; N18.30 Chronic kidney disease, stage 3 unspecified
CPT/HCPCS: 36415; 80053; 80061; 81001; 82043; 82306; 82570; 82728; 83036; 83540; 83550; 83735; 83970; 84100; 84443; 84550; 85025

== ENCOUNTER → 2022-09-17 | Outpatient (CLI) | payer MEDICARE ==
--- NOTE | 2022-09-17 12:33 | XR ---
EXAMINATION TYPE: XR chest 2V DATE OF EXAM: 09/17/2022 COMPARISON: NONE HISTORY: Shortness of breath TECHNIQUE: Frontal and lateral views of the chest are obtained. FINDINGS: Scattered senescent parenchymal changes noted. Hyperinflation compatible with COPD. No evidence for infiltrate. No evidence for atelectasis. Heart size is stable. Mediastinal structures are stable and grossly unremarkable. No evidence for hilar prominence. Degenerative changes dorsal spine. IMPRESSION: 1. No evidence for acute pulmonary disease.
== END | disposition home or self-care (01) ==
LOC: RADXRMAIN 12:03
PROVIDERS: ATTEND Internal Medicine
DX: R05.9 Cough, unspecified (principal)
CPT/HCPCS: 71046

== ENCOUNTER → 2022-10-19 | Outpatient (CLI) | payer MEDICARE ==
--- NOTE | 2022-10-19 12:54 | US ---
EXAMINATION TYPE: US kidneys/renal and bladder DATE OF EXAM: 10/19/2022 COMPARISON: NONE CLINICAL INDICATION: Female, 82 years old with history of N18.31 CHRONIC KIDNEY DISEASE, STAGE 3A; CK D 3 EXAM MEASUREMENTS: Right Kidney: 10.5 x 3.7 x 2.8 cm Left Kidney: 10.7 x 4.2 x 4.1 cm Right Kidney: No hydronephrosis or masses seen Left Kidney: Anechoic area upper pole 3.7 x 3.3 x 3.5 cm. Bladder: anechoic Bilateral Jets seen: no There is no evidence for hydronephrosis at this point in time. No nephrolithiasis is seen. No oren s are identified. The urinary bladder is anechoic. Bilateral ureteral jets are seen. IMPRESSION: simple cyst
== END | disposition home or self-care (01) ==
LOC: RADUSWWP 09:52
PROVIDERS: ATTEND Internal Medicine
DX: N18.31 Chronic kidney disease, stage 3a (principal); N28.1 Cyst of kidney, acquired
CPT/HCPCS: 76770

== ENCOUNTER → 2022-10-23 | Outpatient (CLI) | payer MEDICARE | LOC: CPPFTMAIN 14:45 | PROVIDERS: ATTEND Internal Medicine Clinical Cardiac Electrophysiology | DX: J44.9 Chronic obstructive pulmonary disease, unspecified (principal); Z88.2 Allergy status to sulfonamides; Z88.8 Allergy status to other drugs, medicaments and biological substances | CPT/HCPCS: 94060; 94726; 94729 ==

== ENCOUNTER → 2023-02-21 | Outpatient (CLI) | payer MEDICARE ==
--- NOTE | 2023-02-21 10:28 | US ---
EXAMINATION TYPE: US venous doppler duplex LE DATE OF EXAM: 02/21/2023 10:20 AM COMPARISON: US 2019 CLINICAL INDICATION: Female, 82 years old with history of M79.606 LOWER EXT PAIN; Left leg pain x 1 w [place], patient on blood thinners SIDE PERFORMED: Left TECHNIQUE: The lower extremity deep venous system is examined utilizing real time linear array sonog uli with graded compression, doppler sonography and color-flow sonography. VESSELS IMAGED: Common Femoral Vein Deep Femoral Vein Greater Saphenous Vein * Femoral Vein Popliteal Vein Small Saphenous Vein * Proximal Calf Veins (* superficial vessels) Grayscale, color doppler, spectral doppler imaging performed of the deep veins of the left lower extr emity. There is normal flow, compressibility, vascular waveforms. Left Leg: Appears negative for DVT IMPRESSION: No deep venous thrombosis of the left lower extremity.
== END | disposition home or self-care (01) ==
LOC: RADUSWWP 09:51
PROVIDERS: ATTEND Internal Medicine
DX: M79.605 Pain in left leg (principal)

== ENCOUNTER → 2023-02-26 | Outpatient (CLI) | payer MEDICARE ==
--- NOTE | 2023-02-26 12:24 | XR ---
EXAMINATION TYPE: XR knee 4V LT DATE OF EXAM: 02/26/2023 COMPARISON: NONE HISTORY: Pain TECHNIQUE: Three views are submitted. FINDINGS: Diffuse osteopenia. Moderate narrowing the tricompartment space with marginal spurring. No erosive ch anges. Trace amount of fluid in the suprapatellar bursa.. Osseous structures are intact. No acute f racture seen. IMPRESSION: 1. Diffuse osteopenia with findings compatible with moderate osteoarthritis.
== END | disposition home or self-care (01) ==
LOC: RADXRMAIN 11:48
PROVIDERS: ATTEND Internal Medicine
DX: M17.12 Unilateral primary osteoarthritis, left knee (principal); M85.88 Other specified disorders of bone density and structure, other site

== ENCOUNTER → 2023-09-17 | Outpatient (CLI) | payer MEDICARE ==
[2023-09-17 15:46] LABS: HCT 45.8 % (37.2-46.3); HGB 14.9 g/dL (12.0-15.0); MCH 29.2 pg (27.0-32.0); MCHC 32.5 g/dL (32.0-37.0); MCV 89.8 FL (80.0-97.0); Mean Platelet Volume 11.9 FL (9.5-12.2); NRBC Per 100 WBC 0 X 10*3/uL (0.00-0.01); Platelet Count 279 X 10*3/uL (140-440); RDW 14.1 % (11.5-14.5); WBC 9.16 X 10*3/uL (4.50-10.00)
[2023-09-17 16:31] LABS: ALT 14 U/L (8-44); AST 21 U/L (13-35); Albumin 4.4 g/dL (3.8-4.9); Albumin/Globulin Ratio 1.83 Ratio (1.60-3.17); Alkaline Phosphatase 59 U/L (41-126); BUN/Creat Ratio 15.56 Ratio (12.00-20.00); Calcium 9.6 mg/dL (8.7-10.3); Carbon Dioxide 22.5 mmol/L (21.6-31.8); Chloride 104 mmol/L (96-109); Ferritin 98.2 ng/mL (10.0-291.0); Globulin 2.4 g/dL (1.6-3.3); Glucose 89 mg/dL (70-110); Iron 59 UG/DL (50-170); Potassium 4.7 mmol/L (3.5-5.5); Sodium 140 mmol/L (135-145); Total Bilirubin 0.3 mg/dL (0.3-1.2); Total Iron Binding Capacity 343 UG/DL (228-460); Total Protein 6.8 g/dL (6.2-8.2); Uric Acid 8.3 mg/dL (2.9-7.7)
[2023-09-17 18:03] LABS: Microalbumin Creatinine Ratio <16 mg/g Cr (0-30); Urine Creatinine 73.5 mg/dL (28.0-217.0)
[2023-09-17 20:38] LABS: Appearance,Urine Clear (Clear); Bilirubin,Urine Negative (Negative); Blood,Urine Negative (Negative); Color,Urine Yellow (Yellow); Ketones,Urine Negative (Negative); Nitrite,Urine Negative (Negative); PH, Urine 7.5; Specific Gravity,Urine 1.012 (1.001-1.030); Urobilinogen,Urine 0.2 E.U./DL
== END | disposition home or self-care (01) ==
LOC: LABWHC1 10:43
PROVIDERS: ATTEND Internal Medicine
DX: N18.31 Chronic kidney disease, stage 3a (principal)
CPT/HCPCS: 36415; 80053; 81003; 82043; 82306; 82570; 82728; 83540; 83550; 83735; 83970; 84100; 84550; 85027

== ENCOUNTER → 2023-09-18 | Outpatient (CLI) | payer MEDICARE ==
[2023-09-18 14:24] LABS: Basophils # (A) 0.06 X 10*3/uL (0.00-0.10); Basophils % (A) 0.8 %; Eosinophils # (A) 0.16 X 10*3/uL (0.04-0.35); Eosinophils % (A) 2.1 %; HCT 45.9 % (37.2-46.3); HGB 14.7 g/dL (12.0-15.0); Lymphocytes # (A) 1.06 X 10*3/uL (0.90-5.00); MCH 29.1 pg (27.0-32.0); MCV 90.9 FL (80.0-97.0); Mean Platelet Volume 11.8 FL (9.5-12.2); Monocytes # (A) 0.33 X 10*3/uL (0.20-1.00); Monocytes % (A) 4.4 %; NRBC Per 100 WBC 0 X 10*3/uL (0.00-0.01); Neutrophils # (A) 5.92 X 10*3/uL (1.80-7.70); Neutrophils % (A) 78.4 %; Platelet Count 265 X 10*3/uL (140-440); RBC 5.05 X 10*6/uL (4.10-5.20); RDW 14.1 % (11.5-14.5); WBC 7.55 X 10*3/uL (4.50-10.00)
[2023-09-18 15:21] LABS: LDL Cholesterol,Calculated 128.2 mg/dL (0.0-131.0)
== END | disposition home or self-care (01) ==
LOC: LABWHC1 08:19
PROVIDERS: ATTEND Internal Medicine
DX: Z00.00 Encounter for general adult medical examination without abnormal findings (principal); J02.9 Acute pharyngitis, unspecified; N18.30 Chronic kidney disease, stage 3 unspecified
CPT/HCPCS: 36415; 80061; 82607; 82746; 84443; 85025; 86803

== ENCOUNTER 2024-02-12 13:16 | Emergency (ER) | payer MEDICARE ==
[2024-02-12 14:52] VITALS: TEMP 97.6
--- NOTE | 2024-02-12 16:11 | ED ---
Abdominal Pain HPI - General Chief Complaint: Abdominal Pain Stated Complaint: L side pain under rib Time Seen by Provider: 02/12/24 15:44 Source: patient, RN notes reviewed Mode of arrival: ambulatory Limitations: no limitations - History of Present Illness Initial Comments: This is an 83-year-old female who presents to the emergency department for left upper quadrant pain. Patient states that since this morning she has had pain in the left upper quadrant region radiating into the flank. Denies any nausea/vomiting or changes in bowel/bladder habits. Denies any history of similar pain in the past. States that it hurts to breathe and move. MD Complaint: abdominal pain, flank pain - Related Data Home Medications Medication Instructions Recorded Confirmed Mirtazapine [Remeron] 15 mg PO HS 01/06/14 11/11/20 Albuterol Sulfate [Ventolin HFA] 2 puff INHALATION RT-Q4H PRN 10/31/19 11/11/20 Cholecalciferol (Vitamin D3) 50 mcg PO DAILY 10/31/19 11/11/20 [Vitamin D3] Vortioxetine Hydrobromide 10 mg PO DAILY 10/31/19 11/11/20 [Trintellix] Apixaban [Eliquis] 5 mg PO BID 11/11/20 11/11/20 Dicyclomine [Bentyl] 10 mg PO BID@1200,2100 11/11/20 11/11/20 Dicyclomine [Bentyl] 20 mg PO DAILY 11/11/20 11/11/20 Dorzolamide 2% [Trusopt 2%] 1 drop BOTH EYES TID 11/11/20 11/11/20 Ezetimibe [Zetia] 10 mg PO HS 11/11/20 11/11/20 Famotidine [Pepcid] 20 mg PO BID 11/11/20 11/11/20 Flecainide [Tambocor] 50 mg PO BID 11/11/20 11/11/20 Propranolol HCl [Propranolol HCl 60 mg PO DAILY 11/11/20 11/11/20 ER] ondansetron HCL [Zofran] 4 mg PO TID PRN 11/11/20 11/11/20 Previous Rx's Medication Instructions Recorded Dicyclomine [Bentyl] 20 mg PO TID PRN #20 tablet 11/11/20 Cephalexin [Keflex] 500 mg PO Q6HR #20 cap 09/03/21 Hyoscyamine Sulfate [Levsin] 0.125 mg PO Q4-6H PRN #30 tab 02/12/24 Sucralfate [Carafate] 1 gm PO QID 7 Days #28 tablet 02/12/24 Allergies Allergy/AdvReac Type Severity Reaction Status Date / Time aspartame Allergy Rash/Hives Verified 02/12/24 14:52 Sulfa (Sulfonamide Allergy Anaphylaxis Verified 02/12/24 14:52 Antibiotics) Review of Systems ROS Statement: Those systems with pertinent positive or pertinent negative responses have been documented in the HPI. ROS Other: All systems not noted in ROS Statement are negative. Past Medical History Past Medical History: COPD, Osteoarthritis (OA), Rheumatoid Arthritis (RA) Additional Past Medical History / Comment(s): SEE DR CARLITOS Bailey&Joseph, IBS, RECENTLY ON ABX FOR TOE INFECTION. HAD A PNE VACCINE NOT SURE OF THE DATE, APPROX 3 YEARS AGO. AFIB History of Any Multi-Drug Resistant Organisms: None Reported Past Surgical History: Cardiac Ablation, Orthopedic Surgery Additional Past Surgical History / Comment(s): lumpectomy right breast -benign, bilat carpal tunnel, blepharoplasty, KAR CATARACTS, 5-16 CARDIAC ABLATION. right knee replacement 2 weeks ago Past Anesthesia/Blood Transfusion Reactions: No Reported Reaction Past Psychological History: Anxiety, Depression Smoking Status: Never smoker Past Alcohol Use History: None Reported Past Drug Use History: None Reported - Past Family History Mother Family Medical History: Cancer Brother(s) Family Medical History: Cancer Additional Family Medical History / Comment(s): X2 General Exam Limitations: no limitations General appearance: alert, in no apparent distress Head exam: Present: atraumatic, normocephalic, normal inspection Respiratory exam: Present: normal lung sounds bilaterally. Absent: respiratory distress, wheezes, rales, rhonchi, stridor Cardiovascular Exam: Present: regular rate, normal rhythm, normal heart sounds. Absent: systolic murmur, diastolic murmur, rubs, gallop, clicks GI/Abdominal exam: Present: soft, tenderness (LUQ), normal bowel sounds. Absent: distended Back exam: Absent: CVA tenderness (R), CVA tenderness (L) Neurological exam: Present: alert, oriented X3, CN II-XII intact Psychiatric exam: Present: normal affect, normal mood Skin exam: Present: warm, dry, intact, normal color. Absent: rash Course Vital Signs 02/12/24 02/12/24 14:48 18:57 Temperature 97.6 F Pulse Rate 64 58 L Respiratory 22 18 Rate Blood Pressure 136/79 131/68 O2 Sat by Pulse 96 97 Oximetry Medical Decision Making - Medical Decision Making This is an 83 year old female who presents to the emergency department for abdominal pain. Was pt. sent in by a medical professional or institution? @ -No Did you speak to anyone other than the patient for history? @ -No Did you review nursing and triage notes? @ -Yes, and I agree, it is accurate with regards to the patient's symptoms. Were old charts reviewed? @ -No Differential Diagnosis? @ -Differential Abdominal Pain Women: Appendicitis, Cholecystitis, diverticulosis, ischemic bowel, pancreatitis, hepatitis, UTI, gastroenteritis, AAA, incarcerated hernia, bowel obstruction, constipation, inflammatory bowel, hepatitis, peptic ulcer disease, splenic infarction, perforated viscus, vulvitis, ovarian torsion, PID, kidney stone, placenta abruption, this is not meant to be an all-inclusive list EKG interpreted by me (3pts min.)? @ -EKG interpreted by me demonstrating the following: Sinus rhythm. Ventricular rate 60 bpm, ND interval 164 ms, QRS duration 94 ms, QTc 440 ms. X-rays interpreted by me (1pt min.)? @ -Not obtained CT interpreted by me (1pt min.)? @ -CT scan of the abdomen and pelvis obtained. My interpretation identifies no evidence of bowel wall thickening. U/S interpreted by me (1pt. min.)? @ -Not obtained What testing was considered but not performed? (CT, X-rays, U/S, labs)? Why? @ -None What meds were considered but not given? Why? @ -None Did you discuss the management of the patient with other professionals? @ -No Did you reconcile home meds? @ -No Was smoking cessation discussed for >3mins.? @ -No Was critical care preformed (if so, how long)? @ -No Were there social determinants of health that impacted care today? How? (Homelessness, low income, unemployed, alcoholism, drug addiction, transportation, low edu. Level, literacy, decrease access to med. care, alf, rehab)? @ -No Was there de-escalation of care discussed even if they declined? (Discuss DNR or withdrawal of care, Hospice)? @ -No What co-morbidities impacted this encounter? (DM, HTN, Smoking, COPD, CAD, Cancer, CVA, Hep., AIDS, mental health diagnosis, sleep apnea, morbid obesity)? @ -GERD Was patient admitted / discharged? @ -Discharged. Lab work unremarkable. Troponin and D-dimer negative. Pancreatic enzymes negative. Urinalysis negative for signs of infection. CT scan of the abdomen and pelvis reveals no acute process. Discussed the possibility of something like an ulcer contributing to her symptoms. She did find further improvement in pain with a GI cocktail. Prescription for Levsin and Carafate provided to see if that offers any additional benefit. She is already on omeprazole twice daily. We also discussed [id number] Maalox and Pepcid as additional treatment options. Advised close follow-up with her PCP. Patient discharged home in stable condition. Case discussed with ED attending Dr. Almanzar. Return precautions reviewed in depth, the patient is instructed to return to the emergency department with any new, worsening, or concerning symptoms. Patient verbalized understanding. Undiagnosed new problem with uncertain prognosis? @ -None Drug Therapy requiring intensive monitoring for toxicity (Heparin, Nitro, Insulin, Cardizem)? @ -None Were any procedures done? @ -None Diagnosis/symptom? @ -LUQ pain Acute, or Chronic, or Acute on Chronic? @ -Acute Uncomplicated (without systemic symptoms) or Complicated (systemic symptoms)? @ -Uncomplicated Side effects of treatment? @ -None Exacerbation, Progression, or Severe Exacerbation] @ -Not applicable Poses a threat to life or bodily function? @ -No - Lab Data Result diagrams: 02/12/24 16:12 02/12/24 16:12 Lab Results 02/12/24 02/12/24 02/12/24 Range/Units 16:12 16:12 16:12 WBC 7.3 (3.8-10.6) k/uL RBC 5.21 (3.80-5.40) m/uL Hgb 15.4 (11.4-16.0) gm/dL Hct 48.3 H (34.0-46.0) % MCV 92.8 (80.0-100.0) fL MCH 29.6 (25.0-35.0) pg MCHC 31.9 (31.0-37.0) g/dL RDW 14.1 (11.5-15.5) % Plt Count 336 (150-450) k/uL MPV 9.3 Neutrophils % 70 % Lymphocytes % 22 % Monocytes % 3 % Eosinophils % 2 % Basophils % 1 % Neutrophils # 5.2 (1.3-7.7) k/uL Lymphocytes # 1.6 (1.0-4.8) k/uL Monocytes # 0.2 (0-1.0) k/uL Eosinophils # 0.2 (0-0.7) k/uL Basophils # 0.0 (0-0.2) k/uL PT (10.0-12.5) sec INR (<1.2) APTT (22.0-30.0) sec D-Dimer (<0.60) mg/L FEU Sodium 139 (137-145) mmol/L Potassium 3.9 (3.5-5.1) mmol/L Chloride 108 H (98-107) mmol/L Carbon Dioxide 25 (22-30) mmol/L Anion Gap 6 mmol/L BUN 17 (7-17) mg/dL Creatinine 0.91 (0.52-1.04) mg/dL Est GFR (CKD-EPI)AfAm 68 (>60 ml/min/1.73 sqM) Est GFR (CKD-EPI)NonAf 59 (>60 ml/min/1.73 sqM) Glucose 105 H (74-99) mg/dL Plasma Lactic Acid Aubrey (0.7-2.0) mmol/L Calcium 9.5 (8.4-10.2) mg/dL Magnesium 1.9 (1.6-2.3) mg/dL Total Bilirubin 0.6 (0.2-1.3) mg/dL AST 22 (14-36) U/L ALT 14 (4-34) U/L Alkaline Phosphatase 60 (38-126) U/L Troponin I (0.000-0.034) ng/mL Total Protein 6.9 (6.3-8.2) g/dL Albumin 4.3 (3.5-5.0) g/dL Amylase 54 (30-110) U/L Lipase 55 (23-300) U/L Urine Color Yellow Urine Appearance Clear (Clear) Urine pH 5.5 (5.0-8.0) Ur Specific [place] 1.033 (1.001-1.035) Urine Protein Trace H (Negative) Urine Glucose (UA) Negative (Negative) Urine Ketones Negative (Negative) Urine Blood Negative (Negative) Urine Nitrite Negative (Negative) Urine Bilirubin Negative (Negative) Urine Urobilinogen <2.0 (<2.0) mg/dL Ur Leukocyte Esterase Trace H (Negative) Urine RBC 2 (0-5) /hpf Urine WBC 3 (0-5) /hpf Ur Squamous Epith Cells <1 (0-4) /hpf Urine Bacteria Rare H (None) /hpf Hyaline Casts 7 H (0-2) /lpf Urine Mucus Moderate H (None) /hpf 02/12/24 02/12/24 02/12/24 Range/Units 16:12 16:12 16:12 WBC (3.8-10.6) k/uL RBC (3.80-5.40) m/uL Hgb (11.4-16.0) gm/dL Hct (34.0-46.0) % MCV (80.0-100.0) fL MCH (25.0-35.0) pg MCHC (31.0-37.0) g/dL RDW (11.5-15.5) % Plt Count (150-450) k/uL MPV Neutrophils % % Lymphocytes % % Monocytes % % Eosinophils % % Basophils % % Neutrophils # (1.3-7.7) k/uL Lymphocytes # (1.0-4.8) k/uL Monocytes # (0-1.0) k/uL Eosinophils # (0-0.7) k/uL Basophils # (0-0.2) k/uL PT 10.4 (10.0-12.5) sec INR 0.9 (<1.2) APTT 26.3 (22.0-30.0) sec D-Dimer 0.27 (<0.60) mg/L FEU Sodium (137-145) mmol/L Potassium (3.5-5.1) mmol/L Chloride (98-107) mmol/L Carbon Dioxide (22-30) mmol/L Anion Gap mmol/L BUN (7-17) mg/dL Creatinine (0.52-1.04) mg/dL Est GFR (CKD-EPI)AfAm (>60 ml/min/1.73 sqM) Est GFR (CKD-EPI)NonAf (>60 ml/min/1.73 sqM) Glucose (74-99) mg/dL Plasma Lactic Acid Aubrey 1.1 (0.7-2.0) mmol/L Calcium (8.4-10.2) mg/dL Magnesium (1.6-2.3) mg/dL Total Bilirubin (0.2-1.3) mg/dL AST (14-36) U/L ALT (4-34) U/L Alkaline Phosphatase (38-126) U/L Troponin I <0.012 (0.000-0.034) ng/mL Total Protein (6.3-8.2) g/dL Albumin (3.5-5.0) g/dL Amylase (30-110) U/L Lipase (23-300) U/L Urine Color Urine Appearance (Clear) Urine pH (5.0-8.0) Ur Specific [place] (1.001-1.035) Urine Protein (Negative) Urine Glucose (UA) (Negative) Urine Ketones (Negative) Urine Blood (Negative) Urine Nitrite (Negative) Urine Bilirubin (Negative) Urine Urobilinogen (<2.0) mg/dL Ur Leukocyte Esterase (Negative) Urine RBC (0-5) /hpf Urine WBC (0-5) /hpf Ur Squamous Epith Cells (0-4) /hpf Urine Bacteria (None) /hpf Hyaline Casts (0-2) /lpf Urine Mucus (None) /hpf - Radiology Data Radiology results: report reviewed, image reviewed Disposition Clinical Impression: LUQ abdominal pain Disposition: HOME SELF-CARE Instructions (If sedation given, give patient instructions): Abdominal Pain (ED) Additional Instructions: Return to the emergency department with any new, worsening, or concerning symptoms. Take the Levsin every 4-6 hours to help with abdominal pain and discomfort. Take the Carafate 4 times daily for 7 days. This is best taken an hour before meals. Take Tylenol as needed for additional pain relief. Follow up with your primary care provider in 1-2 days. Prescriptions: Sucralfate [Carafate] 1 gm PO QID 7 Days #28 tablet Hyoscyamine Sulfate [Levsin] 0.125 mg PO Q4-6H PRN #30 tab PRN Reason: Gi Upset Is patient prescribed a controlled substance at d/c from ED?: No Referrals: Mark Anthony Diego DO [Primary Care Provider] - 1-2 days Time of Disposition: 18:42
[2024-02-12] MEDS: KETOROLAC 15 MG/ML 1 ML VIAL IVP STA (16:30)
[2024-02-12] MEDS: SODIUM CHLORIDE 0.9% 500 ML 500 ML IV ONE (16:31)
[2024-02-12] MEDS: MORPHINE SULFATE 4 MG/ML SYRINGE IVP STA (16:31)
[2024-02-12 16:32] LABS: Basophils % (A) 1 %; Eosinophils # (A) 0.2 k/uL (0-0.7); Eosinophils % (A) 2 %; HCT 48.3 % (34.0-46.0); HGB 15.4 gm/dL (11.4-16.0); Lymphocytes # (A) 1.6 k/uL (1.0-4.8); Lymphocytes % (A) 22 %; MCH 29.6 pg (25.0-35.0); MCHC 31.9 g/dL (31.0-37.0); MCV 92.8 fL (80.0-100.0); Mean Platelet Volume 9.3; Monocytes # (A) 0.2 k/uL (0-1.0); Monocytes % (A) 3 %; Neutrophils # (A) 5.2 k/uL (1.3-7.7); Neutrophils % (A) 70 %; Platelet Count 336 k/uL (150-450); RBC 5.21 m/uL (3.80-5.40); RDW 14.1 % (11.5-15.5); WBC 7.3 k/uL (3.8-10.6)
[2024-02-12 16:49] LABS: INR 0.9 (<1.2); Partial Thromboplastin Time 26.3 sec (22.0-30.0); Prothrombin Time 10.4 sec (10.0-12.5)
[2024-02-12 16:51] LABS: Appearance,Urine Clear (Clear); Bacteria,Urine Rare /hpf; Bilirubin,Urine Negative (Negative); Blood,Urine Negative (Negative); Color,Urine Yellow; Glucose,Urine (UA) Negative (Negative); Hyaline Casts,Urine 7 /lpf (0-2); Ketones,Urine Negative (Negative); Leukocyte Esterase,Urine Trace (Negative); Mucus,Urine Moderate /hpf; Nitrite,Urine Negative (Negative); PH, Urine 5.5 (5.0-8.0); Protein,Urine Trace (Negative); RBC,Urine 2 /hpf (0-5); Specific Gravity,Urine 1.033 (1.001-1.035); Squamous Epithelial Cell,Urine <1 /hpf (0-4); Urobilinogen,Urine <2.0 mg/dL (<2.0); WBC,Urine 3 /hpf (0-5)
[2024-02-12 17:09] LABS: ALT 14 U/L (4-34); AST 22 U/L (14-36); African American GFR (CKD) 68 (>60 ml/min/1.73 sqM); Albumin 4.3 g/dL (3.5-5.0); Alkaline Phosphatase 60 U/L (38-126); Amylase 54 U/L (30-110); Anion Gap 6 mmol/L; Blood Urea Nitrogen 17 mg/dL (7-17); Calcium 9.5 mg/dL (8.4-10.2); Carbon Dioxide 25 mmol/L (22-30); Chloride 108 mmol/L (98-107); Glucose 105 mg/dL (74-99); Lipase 55 U/L (23-300); Magnesium 1.9 mg/dL (1.6-2.3); Non-African American GFR(CKD) 59 (>60 ml/min/1.73 sqM); Potassium 3.9 mmol/L (3.5-5.1); Sodium 139 mmol/L (137-145); Total Bilirubin 0.6 mg/dL (0.2-1.3); Total Protein 6.9 g/dL (6.3-8.2)
--- NOTE | 2024-02-12 17:49 | CT ---
EXAMINATION TYPE: CT abdomen pelvis wo con CT DLP: 778.1 mGycm, Automated exposure control for dose reduction was used. DATE OF EXAM: 02/12/2024 5:19 PM COMPARISON: CT abdomen pelvis most recent from CLINICAL INDICATION: Female, 83 years old with history of LUQ and left flank pain; LUQ and Left side flank pain. TECHNIQUE: Axial CT abdomen pelvis wo con;Sagittal and coronal reformats were created on a separate workstation. Contrast used: mL of , (none if empty) Oral contrast used: without Oral Contrast (none if empty) FINDINGS: LOWER CHEST: Unremarkable ABDOMEN LIVER: Unremarkable GALLBLADDER AND BILE DUCTS: Unremarkable. PANCREAS: Unremarkable. SPLEEN: Scattered calcified granulomas. ADRENAL GLANDS: Unremarkable. KIDNEYS AND URETERS: No evidence of hydronephrosis or renal calculus. The ureters are unremarkable. Simple appearing left renal cyst. PELVIS BLADDER: Unremarkable REPRODUCTIVE: Unremarkable. ABDOMEN & PELVIS STOMACH AND BOWEL: No evidence of bowel obstruction. PERITONEUM/RETROPERITONEUM: No evidence of pneumoperitoneum or free fluid. VASCULATURE: No evidence of aortic aneurysm. MUSCULOSKELETAL: No acute osseous abnormalities, grade 1 anterolisthesis of L4 and L5. LYMPH NODES: No gross evidence for lymphadenopathy. SOFT TISSUE/ABDOMINAL WALL: Unremarkable IMPRESSION: 1. No evidence for acute abdominal process. No evidence for obstructive uropathy or renal calculus. 2. Grade 1 anterolisthesis of L4 and L5. [facility] Tammy Woods, , 02/12/2024 5:47 PM
[2024-02-12] MEDS: MAG HYDROX/AL HYDROX/SIMETH 30 ML, HYOSCYAMINE ELIXIR 10 ML, LIDOCAINE VISCOUS 2% 10 ML PO STA (18:09)
[2024-02-12] MEDS: ACET/COD 300 MG/30 MG STARTER PACK 6 TAB BTL PO STA (18:56)
[2024-02-12 19:01] VITALS: BP 131/68; PULSE 58; RESP 18
== END 2024-02-12 19:00 | disposition home or self-care (01) ==
LOC: EC 13:16
DX: R10.12 Left upper quadrant pain (principal); Z88.2 Allergy status to sulfonamides; Z88.8 Allergy status to other drugs, medicaments and biological substances
CPT/HCPCS: 36415; 93005; 85379; 80053; 82150; 83605; 83690; 83735; 84484; 85025; 85610; 85730; 81001; 74176; 99284; 96374; 96375; J2270; J1885

== ENCOUNTER → 2024-09-09 | Outpatient (CLI) | payer MEDICARE ==
[2024-09-09 10:23] LABS: Basophils # (A) 0.05 X 10*3/uL (0.00-0.10); Basophils % (A) 0.6 %; Eosinophils # (A) 0.22 X 10*3/uL (0.04-0.35); Eosinophils % (A) 2.6 %; HCT 48.2 % (37.2-46.3); HGB 15.1 g/dL (12.0-15.0); Lymphocytes # (A) 1.14 X 10*3/uL (0.90-5.00); Lymphocytes % (A) 13.5 %; MCH 26.8 pg (27.0-32.0); MCHC 31.3 g/dL (32.0-37.0); MCV 85.5 FL (80.0-97.0); Monocytes # (A) 0.41 X 10*3/uL (0.20-1.00); Monocytes % (A) 4.8 %; NRBC Per 100 WBC 0 X 10*3/uL (0.00-0.01); Platelet Count 308 X 10*3/uL (140-440); RBC 5.64 X 10*6/uL (4.10-5.20); RDW 14.6 % (11.5-14.5); WBC 8.46 X 10*3/uL (4.50-10.00)
[2024-09-09 10:59] LABS: % Iron Saturation 20.41 (12.00-45.00); ALT 12 U/L (8-44); AST 18 U/L (13-35); Albumin 4.2 g/dL (3.8-4.9); Albumin/Globulin Ratio 1.62 Ratio (1.60-3.17); Alkaline Phosphatase 62 U/L (41-126); Calcium 9.3 mg/dL (8.7-10.3); Chloride 106 mmol/L (96-109); Chol/HDL Ratio 3.34 Ratio; Ferritin 56.6 ng/mL (10.0-291.0); Globulin 2.6 g/dL (1.6-3.3); Glucose 117 mg/dL (70-110); Iron 70 UG/DL (50-170); LDL Cholesterol,Calculated 119.8 mg/dL (0.0-131.0); Potassium 4.5 mmol/L (3.5-5.5); Sodium 143 mmol/L (135-145); Total Bilirubin 0.4 mg/dL (0.3-1.2); Total Iron Binding Capacity 343 UG/DL (228-460); Total Protein 6.8 g/dL (6.2-8.2)
== END | disposition home or self-care (01) ==
LOC: LABWHC1 07:37
PROVIDERS: ATTEND Internal Medicine
DX: I12.9 Hypertensive chronic kidney disease with stage 1 through stage 4 chronic kidney disease, or unspecified chronic kidney disease (principal); N18.30 Chronic kidney disease, stage 3 unspecified; R73.03 Prediabetes
CPT/HCPCS: 36415; 80053; 80061; 82306; 82607; 82728; 82746; 83036; 83540; 83550; 83735; 83970; 84443; 85025

== ENCOUNTER → 2024-09-15 | Outpatient (CLI) | payer MEDICARE ==
[2024-09-15 16:07] LABS: % Iron Saturation 22.05 (12.00-45.00); Iron 84 UG/DL (50-170); Magnesium 2.1 mg/dL (1.5-2.4); Phosphorus 4.4 mg/dL (2.4-5.1); Total Iron Binding Capacity 381 UG/DL (228-460); Uric Acid 8.7 mg/dL (2.9-7.7)
[2024-09-15 16:11] LABS: ALT 13 U/L (8-44); AST 24 U/L (13-35); Albumin 4.3 g/dL (3.8-4.9); Albumin/Globulin Ratio 1.59 Ratio (1.60-3.17); Alkaline Phosphatase 65 U/L (41-126); BUN/Creat Ratio 14.45 Ratio (12.00-20.00); Blood Urea Nitrogen 15.9 mg/dL (9.0-27.0); Calcium 9.6 mg/dL (8.7-10.3); Carbon Dioxide 24.3 mmol/L (21.6-31.8); Chloride 106 mmol/L (96-109); Ferritin 71.7 ng/mL (10.0-291.0); Globulin 2.7 g/dL (1.6-3.3); Glucose 100 mg/dL (70-110); Potassium 5.4 mmol/L (3.5-5.5); Sodium 142 mmol/L (135-145); Total Bilirubin 0.4 mg/dL (0.3-1.2)
[2024-09-15 16:16] LABS: Basophils # (A) 0.08 X 10*3/uL (0.00-0.10); Basophils % (A) 0.8 %; Eosinophils # (A) 0.18 X 10*3/uL (0.04-0.35); Eosinophils % (A) 1.9 %; HCT 51.6 % (37.2-46.3); HGB 16.3 g/dL (12.0-15.0); Lymphocytes # (A) 1.56 X 10*3/uL (0.90-5.00); Lymphocytes % (A) 16.3 %; MCH 27.5 pg (27.0-32.0); MCHC 31.6 g/dL (32.0-37.0); Mean Platelet Volume 12.1 FL (9.5-12.2); Monocytes # (A) 0.41 X 10*3/uL (0.20-1.00); Monocytes % (A) 4.3 %; NRBC Per 100 WBC 0 X 10*3/uL (0.00-0.01); Neutrophils # (A) 7.32 X 10*3/uL (1.80-7.70); Neutrophils % (A) 76.3 %; Platelet Count 304 X 10*3/uL (140-440); RBC 5.93 X 10*6/uL (4.10-5.20); RDW 14.4 % (11.5-14.5); WBC 9.59 X 10*3/uL (4.50-10.00)
[2024-09-15 18:38] LABS: Appearance,Urine Clear (Clear); Bilirubin,Urine Negative (Negative); Blood,Urine Negative (Negative); Color,Urine Yellow (Yellow); Ketones,Urine Negative (Negative); Nitrite,Urine Negative (Negative); PH, Urine 5.5; Specific Gravity,Urine 1.021 (1.001-1.030); Urobilinogen,Urine 0.2 E.U./DL
== END | disposition home or self-care (01) ==
LOC: LABWHC1 11:06
PROVIDERS: ATTEND Nurse Practitioner Family
DX: N18.31 Chronic kidney disease, stage 3a (principal)
CPT/HCPCS: 36415; 80053; 81003; 82043; 82306; 82570; 82728; 83540; 83550; 83735; 83970; 84100; 84550; 85025

== ENCOUNTER 2024-10-23 09:22 | Day surgery (SDC) | payer MEDICARE ==
[2024-10-23 10:17] VITALS: TEMP 96.9
[2024-10-23] MEDS: IV FLUID CONTINUATION 1,000 ML IV ONE ×2 (10:18→10:38)
[2024-10-23] MEDS: LACTATED RINGERS 1,000 ML IV SCH (10:20)
[2024-10-23] MEDS ORDERED: PROPOFOL 10 MG/ML 20 ML VIAL IV ONE (10:48)
[2024-10-23 11:28] VITALS: BP 124/87; PULSE 65; RESP 17
--- NOTE | 2024-10-23 11:48 | P.PCN ---
Date of Procedure: 10/23/24 Procedure(s) Performed: BRIEF HISTORY: Patient is a 84-year-old pleasant white female scheduled for an elective colonoscopy as a part of evaluation of chronic diarrhea for the last 6 months duration. PROCEDURE PERFORMED: Colonoscopy with biopsy and snare polypectomy.. PREOPERATIVE DIAGNOSIS: Chronic diarrhea of 6 months duration. IV sedation per Anesthesia. PROCEDURE: After informed consent was obtained, the patient, was brought into the endoscopy unit. IV sedation was administered by Anesthesia under continuous monitoring. Digital rectal examination was normal. Initially the Olympus CF-160 flexible video colonoscope was then inserted in the rectum, gradually advanced into the cecum without any difficulty. Careful examination was performed as the scope was gradually being withdrawn. Ileocecal valve and the appendiceal orifice were visualized and appeared normal. Prep was excellent. Mucosa of the cecum, appeared normal. In the hepatic lesion there was a 7 mm polyp was removed by cold snare polypectomy. Rest of the ascending colon, transverse colon, descending colon, sigmoid colon, and rectum appeared normal. Random biopsies were done from the ascending and descending colon rule out microscopic/collagenous colitis. Retroflexion was performed in the rectum and no lesions were seen. The patient tolerated the procedure well. IMPRESSION: 7 mm hepatic flexure polyp status post cold snare polypectomy.. Scattered sigmoid diverticulosis. RECOMMENDATIONS: Findings of this examination were discussed with the patient as well as her family. She was advised to follow with the biopsy results. Follow-up in the office in 2 weeks..
== END 2024-10-23 11:41 | disposition home or self-care (01) ==
LOC: ORWHC2ENDO 09:22
PROVIDERS: ATTEND Internal Medicine Gastroenterology
DX: D12.3 Benign neoplasm of transverse colon (principal); K57.30 Diverticulosis of large intestine without perforation or abscess without bleeding; K58.0 Irritable bowel syndrome with diarrhea; Z88.2 Allergy status to sulfonamides; Z91.02 Food additives allergy status; I48.91 Unspecified atrial fibrillation; M06.9 Rheumatoid arthritis, unspecified; M19.90 Unspecified osteoarthritis, unspecified site; F41.9 Anxiety disorder, unspecified; F32.A Depression, unspecified; Z79.01 Long term (current) use of anticoagulants; Z79.899 Other long term (current) drug therapy
CPT/HCPCS: 88305; 45380; 45385; J2704